=== PATIENT | male | born 1965 | race Caucasian/White ===

== ENCOUNTER 2019-03-03 19:09 | Emergency (ER) | payer MEDICAID, MEDICARE, OTHER ==
[2019-03-03 19:52] LABS: ANION GAP 17.1; CHLORIDE,CL 101 mmol/L (101-111); SODIUM,NA 141 mmol/L (135-145)
[2019-03-03] MEDS ORDERED: MVI, Adult with Vitamin K 10 ML, Folic Acid 1 MG, Thiamine 100 MG in Lactated Ringers 1... IV ONE ×4 (19:59)
--- NOTE | 2019-03-03 20:07 | EDM.PDOC ---
ED HPI GENERAL MEDICAL PROBLEM - General Chief Complaint: Trauma Stated Complaint: TRAUMA CODE, AMBULANCE Time Seen by Provider: 03/03/19 19:10 Source of Information: Reports: Patient, EMS History Limitations: Reports: Intoxication - History of Present Illness INITIAL COMMENTS - FREE TEXT/NARRATIVE: ED via [facility] with report of fall with laceration to back of head. Witnessed fall while walking to vehicle . Witness niece does not thin loss of consciousness, Saw him fall and immediately called 911. Awake on arrival of EMS., moving all extremities, pool of blood under back of head. Patient intoxicated admits drinking a lot, Niece reports, drunk since yesterday. Patient reports drinks daily. GCS 14 moving all extremities on arrival Review of Systems - Review of Systems Review Of Systems: Comprehensive ROS is negative, except as noted in HPI. ED EXAM, GENERAL - Physical Exam Exam: See Below Exam Limited By: No Limitations General Appearance: Alert, Mild Distress, Thin Eye Exam: Bilateral Eye: EOMI, PERRL Ears: Normal External Exam, Normal TMs Nose: Normal Inspection Throat/Mouth: Normal Inspection, Normal Lips, Other (dry, white residue on lips) Head: Normocephalic, Other (left parietal scalp laceration) Neck: Full Range of Motion, Other (c collar) Respiratory/Chest: No Respiratory Distress, Normal Breath Sounds, Other ( ocacasional loose bronchial cough. ). No: Respiratory Distress Cardiovascular: Normal Peripheral Pulses, Regular Rate, Rhythm, No Edema GI/Abdominal: Normal Bowel Sounds, Soft, No Distention, Pelvis Stable Back Exam: No: Paraspinal Tenderness, Vertebral Tenderness Extremities: Normal Range of Motion, Other (extremities cool, states normal) Neurological: Alert, Inattentive, Memory Loss Recent Events (intoxicated, cooprative easily redirects), Other Psychiatric: Other (intox. requires frequent redirection, non combative) Skin Exam: Ecchymosis, Tattoo(s) ED TRAUMA PROCEDURES - Laceration/Wound Repair Left Posterior Head Lac/Wound Length In cm: 2 Appearance: Superficial, Stellate Skin Prep: Chlorhexidine (Hibiciens), Saline Closed With: Narinder (6) Sterile Dressing Applied: Provider Tetanus Status Addressed: Yes Course - Orders/Labs/Meds Labs: Laboratory Tests 03/03/19 03/03/19 03/03/19 Range/Units 19:14 19:14 19:14 WBC 8.6 (5.0-10.0) 10^3/uL RBC 5.74 (4.6-6.2) 10^6/uL Hgb 18.2 H (14.0-18.0) g/dL Hct 52.5 (40.0-54.0) % MCV 91.5 (80-100) fL MCH 31.7 (27.0-34.0) pg MCHC 34.7 (33.0-35.0) g/dL Plt Count 151 (150-450) 10^3/uL Neut % (Auto) 67.4 (42.2-75.2) % Lymph % (Auto) 23.8 (20.5-50.1) % [place] % (Auto) 5.9 (2-8) % Eos % (Auto) 2.3 (1.0-3.0) % Baso % (Auto) 0.6 (0.0-1.0) % PT 10.4 (9.0-12.0) SEC INR 1.0 (0.9-1.2) Sodium 141 (135-145) mmol/L Potassium 4.1 (3.6-5.0) mmol/L Chloride 101 (101-111) mmol/L Carbon Dioxide 27.0 (21.0-31.0) mmol/L Anion Gap 17.1 BUN 9 (7-18) mg/dL Creatinine 0.7 (0.6-1.3) mg/dL Est Cr Clr Drug Dosing TNP Estimated GFR (MDRD) > 60 BUN/Creatinine Ratio 12.85 Glucose 119 H (74-105) mg/dL Calcium 8.4 (8.4-10.2) mg/dl Total Bilirubin 0.6 (0.2-1.0) mg/dL AST 85 H (10-42) IU/L ALT 74 H (10-60) IU/L Alkaline Phosphatase 68 (42-121) IU/L Total Protein 7.6 (6.7-8.2) g/dl Albumin 4.2 (3.2-5.5) g/dl Globulin 3.4 Albumin/Globulin Ratio 1.24 Amylase 52 (28-100) U/L Lipase 25 (22-51) U/L Ethyl Alcohol 415 mg/dL Meds: Medications Discontinued Medications Generic Name Dose Route Start Last Admin Trade Name Polly PRN Reason Stop Dose Admin Multivitamins/Minerals 10 ml/ 1,011.2 mls @ 999 mls/hr 03/03/19 19:59 20:43 Folic Acid 1 mg/ Thiamine HCl IV 03/03/19 20:59 999 mls/hr 100 mg/ Lactated Ringer's ONETIME ONE Administration Departure - Departure Time of Disposition: 21:41 Disposition: DC/Tfer to Acute Hospital 02 Condition: Good Clinical Impression: Intoxication Scalp laceration Qualifiers: Encounter type: initial encounter Qualified Code(s): S01.01XA - Laceration without foreign body of scalp, initial encounter Fall Qualifiers: Encounter type: initial encounter Qualified Code(s): W19.XXXA - Unspecified fall, initial encounter - Discharge Information *PRESCRIPTION DRUG MONITORING PROGRAM REVIEWED*: No *COPY OF PRESCRIPTION DRUG MONITORING REPORT IN PATIENT ROSIE: No Referrals: PCP,None [Primary Care Provider] - Forms: ED Department Discharge Sepsis Event Note - Focused Exam Date Exam was Performed: 03/05/19 Time Exam was Performed: 05:32
== END 2019-03-03 21:50 ==
LOC: DL.ED 19:09
DX: S01.01XA Laceration without foreign body of scalp, initial encounter (principal); F10.129 Alcohol abuse with intoxication, unspecified; Y90.8 Blood alcohol level of 240 mg/100 ml or more; W19.XXXA Unspecified fall, initial encounter; W22.8XXA Striking against or struck by other objects, initial encounter
CPT/HCPCS: 12001; 36415; 70450; 70486; 72125; 72192; 80053; 80320; 82150; 83690; 85025; 85610; 96365; 99285; J3411; J7120; G0480; J3490

== ENCOUNTER 2019-10-27 11:41 | Emergency (ER) | payer MEDICAID, OTHER ==
[2019-10-27] MEDS ORDERED: Ketorolac 30 MG/ML SDV IM ONE (11:53)
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
== END 2019-10-27 12:53 | disposition home or self-care (01) ==
LOC: DL.ED 11:41
DX: S20.212A Contusion of left front wall of thorax, initial encounter (principal); J44.9 Chronic obstructive pulmonary disease, unspecified; F17.210 Nicotine dependence, cigarettes, uncomplicated; V19.9XXA Pedal cyclist (driver) (passenger) injured in unspecified traffic accident, initial encounter
CPT/HCPCS: 71101; 96372; 99283; J1885; 99282

== ENCOUNTER 2020-04-23 11:25 | Inpatient (IN) | payer MEDICAID ==
--- NOTE | 2020-04-23 09:38 | EDM.PDOC ---
ED HPI GENERAL MEDICAL PROBLEM - General Stated Complaint: SHORTNESS OF BREATH Time Seen by Provider: 04/23/20 11:25 Source of Information: Reports: Patient, Provider History Limitations: Reports: No Limitations - History of Present Illness INITIAL COMMENTS - FREE TEXT/NARRATIVE: This 55 yo male patient was brought to the ED from the [facility] due to increased shortness of breath. The patient has a history of COPD with previous episodes of bronchitis and pneumonia. During the visit in the Clinic, the patient had an oxygen saturation of 87% on room air. No labs or x-rays were done prior to bringing the patient to the ED. The patient reports he has been having increased shortness of breath over the past 3 weeks. 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 The patient reports he has been using his inhaler with some temporary symptom relief. The patient reports he is out of his inhaler at this time. The patient reports he used to have a nebulizer at home, but does not know where his nebulizer machine is at this time. Onset: Gradual Duration: Week(s): (3), Constant, Getting Worse Location: Reports: Chest Quality: Reports: Other Severity: Moderate Improves with: Reports: None Worsens with: Reports: None Context: Reports: Other Associated Symptoms: Reports: cough w sputum, Shortness of Breath, Weakness - Related Data Allergies Allergy/AdvReac Type Severity Reaction Status Date / Time No Known Allergies Allergy Verified 04/23/20 09:40 Home Meds: Home Meds Albuterol Sulfate [Albuterol Sulfate HFA] 2 puff INH Q4H PRN 04/23/20 [History] Past Medical History Respiratory History: Reports: COPD Social & Family History - Family History Family Medical History: No Pertinent Family History - Caffeine Use Caffeine Use: Reports: None ED ROS GENERAL - Review of Systems Review Of Systems: Comprehensive ROS is negative, except as noted in HPI. ED EXAM, GENERAL - Physical Exam Exam: See Below Exam Limited By: No Limitations General Appearance: Alert, WD/WN, No Apparent Distress Eye Exam: Bilateral Eye: EOMI, Normal Inspection, PERRL Ears: Normal External Exam, Normal Canal, Hearing Grossly Normal, Normal TMs Nose: Normal Inspection, Normal Mucosa, No Blood Throat/Mouth: Normal Inspection, Normal Lips, Normal Teeth, Normal Gums, Normal Oropharynx, Normal Voice, No Airway Compromise Head: Atraumatic, Normocephalic Neck: Normal Inspection, Supple, Non-Tender, Full Range of Motion Respiratory/Chest: Decreased Breath Sounds, Rhonchi (diffuse) Cardiovascular: Normal Peripheral Pulses, Regular Rate, Rhythm, No Edema, No Gallop, No JVD, No Murmur, No Rub GI/Abdominal: Normal Bowel Sounds, Soft, Non-Tender, No Organomegaly, No Distention, No Abnormal Bruit, No Mass (Male) Exam: Deferred Rectal (Males) Exam: Deferred Back Exam: Normal Inspection, Full Range of Motion, NT Extremities: Normal Inspection, Normal Range of Motion, Non-Tender, Normal Capillary Refill, No Pedal Edema Neurological: Alert, Oriented, CN II-XII Intact, Normal Cognition, Normal Gait, Normal Reflexes, No Motor/Sensory Deficits Psychiatric: Normal Affect, Normal Mood Skin Exam: Warm, Dry, Intact, Normal Color, No Rash Lymphatic: No Adenopathy Course - Vital Signs Last Recorded V/S: Last Vital Signs Temp 36.8 C 04/23/20 11:49 Pulse 87 04/23/20 11:49 Resp 20 04/23/20 11:49 BP 152/90 H 04/23/20 11:49 Pulse Ox 92 L 04/23/20 11:49 - Orders/Labs/Meds Orders: Active Orders 24 hr Category Date Time Status Ambulate [RC] ASDIRECTED Care 04/23/20 11:49 Active Intake and Output [RC] QSHIFT Care 04/23/20 11:50 Active Notify Provider Vital Signs [RC] ASDIRECTED Care 04/23/20 11:50 Active Oxygen Therapy [RC] .PRN Care 04/23/20 11:49 Active Pulse Oximetry [RC] .PRN Care 04/23/20 11:50 Active RT Aerosol Therapy [RC] ASDIRECTED Care 04/23/20 10:13 Active RT Aerosol Therapy [RC] ASDIRECTED Care 04/23/20 11:56 Active VTE/DVT Education [RC] PER UNIT ROUTINE Care 04/23/20 11:49 Active Vital Signs [RC] 00,04,08,12,16,20 Care 04/23/20 11:49 Active PT Evaluation and Treatment [CONS] Routine Cons 04/23/20 11:49 Active Respiratory Care Assess and Treatment [CONS] Routine Cons 04/23/20 11:49 Active Regular Diet [DIET] Diet 04/23/20 Lunch Active CULTURE BLOOD [BC] Stat Lab 04/23/20 09:42 Received CULTURE BLOOD [BC] Stat Lab 04/23/20 11:31 Received CULTURE SPUTUM + SMEAR [RM] Stat Lab 04/23/20 09:48 Results Blood Culture x2 Reflex Set [OM.PC] Stat Oth 04/23/20 11:49 Ordered Resuscitation Status Routine Resus Stat 04/23/20 11:49 Ordered Labs: Laboratory Tests 04/23/20 04/23/20 04/23/20 Range/Units 09:26 09:42 09:42 WBC 6.1 (5.0-10.0) 10^3/uL RBC 5.45 (4.6-6.2) 10^6/uL Hgb 17.5 (14.0-18.0) g/dL Hct 51.9 (40.0-54.0) % MCV 95.2 D (80-100) fL MCH 32.1 (27.0-34.0) pg MCHC 33.7 (33.0-35.0) g/dL Plt Count 97 L (150-450) 10^3/uL Neut % (Auto) 76.4 H (42.2-75.2) % Lymph % (Auto) 11.8 L (20.5-50.1) % [place] % (Auto) 9.0 H (2-8) % Eos % (Auto) 2.1 (1.0-3.0) % Baso % (Auto) 0.7 (0.0-1.0) % Sodium 140 (136-145) mmol/L Potassium 3.3 L (3.5-5.1) mmol/L Chloride 100 (98-107) mmol/L Carbon Dioxide 32 (21-32) mmol/L Anion Gap 11.3 (7-13) mEq/L BUN 5 L (7-18) mg/dL Creatinine 0.71 (0.70-1.30) mg/dL Est Cr Clr Drug Dosing TNP Estimated GFR (MDRD) > 60 BUN/Creatinine Ratio 7.0 (No establ ref range) Glucose 112 H (74-99) mg/dL Lactic Acid (0.4-2.0) mmol/L Calcium 8.1 L (8.5-10.1) mg/dL Phosphorus (2.6-4.7) mg/dL Magnesium (1.8-2.4) mg/dL Total Bilirubin 0.5 (0.2-1.0) mg/dL AST 137 H (15-37) U/L ALT 115 H (16-63) U/L Alkaline Phosphatase 90 (46-116) U/L Troponin I < 0.017 (0.000-0.056) ng/mL Total Protein 7.4 (6.4-8.2) g/dL Albumin 3.2 L (3.4-5.0) g/dL Globulin 4.2 Albumin/Globulin Ratio 0.76 Ethyl Alcohol 47 (0) mg/dL Influenza Type A RNA Negative (NEGATIVE) Influenza Type B RNA Negative (NEGATIVE) SARS-CoV-2 RNA ([place]INSON) Negative (NEGATIVE) 04/23/20 04/23/20 Range/Units 09:42 09:42 WBC (5.0-10.0) 10^3/uL RBC (4.6-6.2) 10^6/uL Hgb (14.0-18.0) g/dL Hct (40.0-54.0) % MCV (80-100) fL MCH (27.0-34.0) pg MCHC (33.0-35.0) g/dL Plt Count (150-450) 10^3/uL Neut % (Auto) (42.2-75.2) % Lymph % (Auto) (20.5-50.1) % [place] % (Auto) (2-8) % Eos % (Auto) (1.0-3.0) % Baso % (Auto) (0.0-1.0) % Sodium (136-145) mmol/L Potassium (3.5-5.1) mmol/L Chloride (98-107) mmol/L Carbon Dioxide (21-32) mmol/L Anion Gap (7-13) mEq/L BUN (7-18) mg/dL Creatinine (0.70-1.30) mg/dL Est Cr Clr Drug Dosing Estimated GFR (MDRD) BUN/Creatinine Ratio (No establ ref range) Glucose (74-99) mg/dL Lactic Acid 1.4 (0.4-2.0) mmol/L Calcium (8.5-10.1) mg/dL Phosphorus 3.3 (2.6-4.7) mg/dL Magnesium 1.7 L (1.8-2.4) mg/dL Total Bilirubin (0.2-1.0) mg/dL AST (15-37) U/L ALT (16-63) U/L Alkaline Phosphatase (46-116) U/L Troponin I (0.000-0.056) ng/mL Total Protein (6.4-8.2) g/dL Albumin (3.4-5.0) g/dL Globulin Albumin/Globulin Ratio Ethyl Alcohol (0) mg/dL Influenza Type A RNA (NEGATIVE) Influenza Type B RNA (NEGATIVE) SARS-CoV-2 RNA (R[place]INSON) (NEGATIVE) Meds: Medications Discontinued Medications Generic Name Dose Route Start Last Admin Trade Name Freq PRN Reason Stop Dose Admin Acetaminophen 650 mg 04/23/20 11:49 Tylenol PO Q4H PRN Pain (Mild 1-3)/fever Albuterol/Ipratropium 3 ml 04/23/20 10:13 04/23/20 10:19 Duoneb 3.0-0.5 Mg/3 Ml NEB 04/23/20 10:14 3 ml ONETIME ONE Administration Albuterol/Ipratropium 3 ml 04/23/20 15:00 Duoneb 3.0-0.5 Mg/3 Ml NEB Q4HRRT [facility] Heparin Sodium (Porcine) 5,000 units 04/23/20 21:00 Heparin Sodium SUBCUT Q12HR [facility] Ceftriaxone Sodium 1 gm/ 50 mls @ 100 mls/hr 04/23/20 11:12 04/23/20 11:28 Sodium Chloride IV 04/23/20 11:41 100 mls/hr ONETIME ONE Administration Azithromycin 500 mg/ Sodium 250 mls @ 250 mls/hr 04/23/20 11:12 04/23/20 11:28 Chloride IV 04/23/20 12:11 250 mls/hr ONETIME ONE Administration Ceftriaxone Sodium 1 gm/ 50 mls @ 100 mls/hr 04/23/20 13:00 Sodium Chloride IV Q24H [facility] Azithromycin 500 mg/ Sodium 250 mls @ 250 mls/hr 04/24/20 12:00 Chloride IV Q24H [facility] Magnesium Hydroxide 30 ml 04/23/20 11:49 Milk Of Magnesia PO Q12H PRN Constipation Methylprednisolone Sodium Succinate 125 mg 04/23/20 11:12 04/23/20 11:27 Solu-Medrol IVPUSH 04/23/20 11:13 125 mg ONETIME ONE Administration Methylprednisolone Sodium Succinate 40 mg 04/23/20 17:00 Solu-Medrol IVPUSH Q8HR [facility] Ondansetron HCl 4 mg 04/23/20 11:49 Zofran IVPUSH Q6H PRN Nausea/Vomiting Departure - Departure Time of Disposition: 11:16 Disposition: Admitted As Inpatient 66 Condition: Fair Clinical Impression: Pneumonia Qualifiers: Pneumonia type: due to unspecified organism Laterality: right Lung location: lower lobe of lung Qualified Code(s): J18.9 - Pneumonia, unspecified organism - Discharge Information *PRESCRIPTION DRUG MONITORING PROGRAM REVIEWED*: Not Applicable *COPY OF PRESCRIPTION DRUG MONITORING REPORT IN PATIENT ROSIE: Not Applicable Referrals: Mabel Munoz NP [Ordering Only Provider] - Forms: ED Department Discharge Sepsis Event Note (ED) - Focused Exam Vital Signs: Vital Signs Temp Pulse Resp BP BP Pulse Ox Pulse Ox 04/23/20 11:49 36.8 C 87 20 152/90 H 156/94 H 92 L 04/23/20 10:13 86 97 04/23/20 09:36 36.0 C L 90 20 158/91 H 94 L - My Orders Last 24 Hours: My Active Orders 04/23/20 09:42 CULTURE BLOOD [BC] Stat 04/23/20 09:48 CULTURE SPUTUM + SMEAR [RM] Stat 04/23/20 10:13 RT Aerosol Therapy [RC] ASDIRECTED 04/23/20 11:31 CULTURE BLOOD [BC] Stat - Assessment/Plan Last 24 Hours: My Active Orders 04/23/20 09:42 CULTURE BLOOD [BC] Stat 04/23/20 09:48 CULTURE SPUTUM + SMEAR [RM] Stat 04/23/20 10:13 RT Aerosol Therapy [RC] ASDIRECTED 04/23/20 11:31 CULTURE BLOOD [BC] Stat
[2020-04-23 10:10] LABS: CORONAVIRUS COVID-19 NAA NEGATIVE (NEGATIVE)
[2020-04-23 10:15] LABS: ANION GAP 11.3 mEq/L (7-13); CHLORIDE,CL 100 mmol/L (98-107); SODIUM,NA 140 mmol/L (136-145)
--- NOTE | 2020-04-23 10:39 | CR ---
PROCEDURE INFORMATION: Exam: XR Chest, 2 Views Exam date and time: 04/23/2020 10:28 AM Age: 55 years old Clinical indication: Shortness of breath; Additional info: Short of breath TECHNIQUE: Imaging protocol: XR of the chest Views: 2 views. COMPARISON: CR Ribs 2V w Chest Lt 10/27/2019 11:54 AM FINDINGS: Lungs: There is mild new hazy opacity in the right perihilar region. The lungs are otherwise clear. Pleural spaces: Unremarkable. No pleural effusion. No pneumothorax. Heart/Mediastinum: The cardiomediastinal silhouette is fairly stable in appearance. Bones/joints: Some pre-existing left rib fractures now have a chronic appearance. Degenerative changes again involve the spine. IMPRESSION: Mild hazy right perihilar opacity, could reflect pneumonia.
[~2020-04-23 11:25] MED LIST: Albuterol/Ipratropium 3.0-0.5 MG/3 ML Neb Soln NEB ONE; Azithromycin 500 MG in Sodium Chloride 0.9% 250 ML IV ONE; cefTRIAXone 1 GM in Sodium Chloride 0.9% 50 ML IV ONE; methylPREDNISolone Sodium Succinate 125 MG/2 ML SDV IVPUSH ONE
[2020-04-23] MEDS ORDERED: Acetaminophen 325 MG Tab PO PRN (11:49)
[2020-04-23] MEDS ORDERED: Ondansetron 4 MG/2 ML SDV IVPUSH PRN (11:49)
--- NOTE | 2020-04-23 11:57 | PCM.HP ---
H&P History of Present Illness - General Date of Service: 04/23/20 Admit Problem/Dx: COPD exacerbation Source of Information: Patient History Limitations: Reports: No Limitations - History of Present Illness Initial Comments - Free Text/Narative: Jasvir is 55-year-old male with past medical history significant for active tobacco abuse, COPD who presented to the ED from clinic for shortness of breath and hypoxia. Patient reports he has been having increasing shortness of breath for the past 3 weeks. He is run out of his inhaler and currently using one that belongs to his friend. He presented to the clinic to get a refill on his albuterol. He was noted to be short of breath with hypoxia. He was placed on 2 L oxygen and sent to the ED. He reports dyspnea on exertion. He noted wheezing, productive cough with greenish sputum. He has no fever or chills. Denies chest pain. No leg swelling. No recent travel or sick contact. States has been trying to cut down on smoking. Currently half pack a day. He denies alcohol abuse. In the ED vitals unremarkable. Labs significant for potassium 3.3, CBC within normal limits. AST/ALT 137/115. Chest x-ray concerning for mild hazy perihilar opacity concerning for pneumonia. He received neb treatment with some improvement in shortness of breath. He also received Solu-Medrol and antibiotics. Admission requested for further management. Onset of Symptoms: Reports: Gradual Duration of Symptoms: Reports: Week(s): Location: Reports: Chest Quality: Reports: Ache Improves with: Reports: None Worsens with: Reports: None Associated Symptoms: Reports: No Other Symptoms - Related Data Allergies/Adverse Reactions: Allergies Allergy/AdvReac Type Severity Reaction Status Date / Time No Known Allergies Allergy Verified 04/23/20 09:40 Home Medications: Home Meds Albuterol Sulfate [Albuterol Sulfate HFA] 2 puff INH Q4H PRN 04/23/20 [History] Past Medical History Respiratory History: Reports: COPD Social & Family History - Family History Family Medical History: No Pertinent Family History - Tobacco Use Tobacco Use Status *Q: Current Every Day Tobacco User Years of Tobacco use: 40 Packs/Tins Daily: 0.5 - Caffeine Use Caffeine Use: Reports: None - Alcohol Use Days Per Week of Alcohol Use: 2 Number of Drinks Per Day: 4 Total Drinks Per Week: 8 - Recreational Drug Use Recreational Drug Use: No H&P Review of Systems - Review of Systems: Review Of Systems: See Below (As per HPI) Free Text/Narrative: As per HPI General: Reports: No Symptoms HEENT: Reports: No Symptoms Pulmonary: Reports: No Symptoms Cardiovascular: Reports: No Symptoms Gastrointestinal: Reports: No Symptoms Genitourinary: Reports: No Symptoms Musculoskeletal: Reports: No Symptoms Skin: Reports: No Symptoms Psychiatric: Reports: No Symptoms Neurological: Reports: No Symptoms Hematologic/Lymphatic: Reports: No Symptoms Immunologic: Reports: No Symptoms Exam - Exam Exam: See Below - Vital Signs Vital Signs: Last Vital Signs Temp 96.8 F L 04/23/20 09:36 Pulse 86 04/23/20 10:13 Resp 20 04/23/20 09:36 BP 158/91 H 04/23/20 09:36 Pulse Ox 97 04/23/20 10:13 - Exam General: Alert, Oriented, 4 HEENT: PERRLA, Hearing Intact, Mucosa Moist & [place], Nares Patent, Normal Nasal Septum, Posterior Pharynx Clear, Conjunctiva Clear, EOMI, EACs Clear, TMs Clear Neck: Supple, Trachea Midline, 2 Lungs: Normal Respiratory Effort, Other (Mild scattered wheezing) Cardiovascular: Regular Rate, Regular Rhythm GI/Abdominal Exam: Normal Bowel Sounds, Soft, Non-Tender, No Organomegaly, No Distention, No Abnormal Bruit, No Mass, Pelvis Stable (Male) Exam: No Hernia, Normal Inspection, Normal Prostate, Circumcised Rectal (Males) Exam: Normal Exam, Normal Rectal Tone, Prostate Normal Back Exam: Normal Inspection, Full Range of Motion, NT Extremities: Normal Inspection, Normal Range of Motion, Non-Tender, No Pedal Edema, Normal Capillary Refill Skin: Warm, Dry, Intact Neurological: Cranial Nerves Intact, Reflexes Equal Bilateral Neuro Extensive - Mental Status: Alert, Oriented x3, Normal Mood/Affect, Normal Cognition Neuro Extensive - Motor, Sensory, Reflexes: CN II-XII Intact, Normal Gait, Normal Reflexes Psychiatric: Alert, Normal Affect, Normal Mood - Patient Data Lab Results Last 24 hrs: Laboratory Results - last 24 hr 04/23/20 04/23/20 04/23/20 Range/Units 09:26 09:42 09:42 WBC 6.1 (5.0-10.0) 10^3/uL RBC 5.45 (4.6-6.2) 10^6/uL Hgb 17.5 (14.0-18.0) g/dL Hct 51.9 (40.0-54.0) % MCV 95.2 D (80-100) fL MCH 32.1 (27.0-34.0) pg MCHC 33.7 (33.0-35.0) g/dL Plt Count 97 L (150-450) 10^3/uL Neut % (Auto) 76.4 H (42.2-75.2) % Lymph % (Auto) 11.8 L (20.5-50.1) % [place] % (Auto) 9.0 H (2-8) % Eos % (Auto) 2.1 (1.0-3.0) % Baso % (Auto) 0.7 (0.0-1.0) % Sodium 140 (136-145) mmol/L Potassium 3.3 L (3.5-5.1) mmol/L Chloride 100 (98-107) mmol/L Carbon Dioxide 32 (21-32) mmol/L Anion Gap 11.3 (7-13) mEq/L BUN 5 L (7-18) mg/dL Creatinine 0.71 (0.70-1.30) mg/dL Est Cr Clr Drug Dosing TNP Estimated GFR (MDRD) > 60 BUN/Creatinine Ratio 7.0 (No establ ref range) Glucose 112 H (74-99) mg/dL Lactic Acid (0.4-2.0) mmol/L Calcium 8.1 L (8.5-10.1) mg/dL Total Bilirubin 0.5 (0.2-1.0) mg/dL AST 137 H (15-37) U/L ALT 115 H (16-63) U/L Alkaline Phosphatase 90 (46-116) U/L Troponin I < 0.017 (0.000-0.056) ng/mL Total Protein 7.4 (6.4-8.2) g/dL Albumin 3.2 L (3.4-5.0) g/dL Globulin 4.2 Albumin/Globulin Ratio 0.76 Ethyl Alcohol 47 (0) mg/dL Influenza Type A RNA Negative (NEGATIVE) Influenza Type B RNA Negative (NEGATIVE) SARS-CoV-2 RNA ([place]) Negative (NEGATIVE) 04/23/20 Range/Units 09:42 WBC (5.0-10.0) 10^3/uL RBC (4.6-6.2) 10^6/uL Hgb (14.0-18.0) g/dL Hct (40.0-54.0) % MCV (80-100) fL MCH (27.0-34.0) pg MCHC (33.0-35.0) g/dL Plt Count (150-450) 10^3/uL Neut % (Auto) (42.2-75.2) % Lymph % (Auto) (20.5-50.1) % [place] % (Auto) (2-8) % Eos % (Auto) (1.0-3.0) % Baso % (Auto) (0.0-1.0) % Sodium (136-145) mmol/L Potassium (3.5-5.1) mmol/L Chloride (98-107) mmol/L Carbon Dioxide (21-32) mmol/L Anion Gap (7-13) mEq/L BUN (7-18) mg/dL Creatinine (0.70-1.30) mg/dL Est Cr Clr Drug Dosing Estimated GFR (MDRD) BUN/Creatinine Ratio (No establ ref range) Glucose (74-99) mg/dL Lactic Acid 1.4 (0.4-2.0) mmol/L Calcium (8.5-10.1) mg/dL Total Bilirubin (0.2-1.0) mg/dL AST (15-37) U/L ALT (16-63) U/L Alkaline Phosphatase (46-116) U/L Troponin I (0.000-0.056) ng/mL Total Protein (6.4-8.2) g/dL Albumin (3.4-5.0) g/dL Globulin Albumin/Globulin Ratio Ethyl Alcohol (0) mg/dL Influenza Type A RNA (NEGATIVE) Influenza Type B RNA (NEGATIVE) SARS-CoV-2 RNA ([place]) (NEGATIVE) Result Diagrams: 04/23/20 09:42 04/23/20 09:42 Gilbert Results Last 24 hrs: Microbiology 04/23/20 09:48 Gram Stain - Final Sputum - Expectorated - Problem List (1) COPD with exacerbation SNOMED Code(s): 614071560 ICD Code: J44.1 - CHRONIC OBSTRUCTIVE PULMONARY DISEASE W (ACUTE) EXACERBATION Status: Acute Current Visit: Yes (2) Hypoxia SNOMED Code(s): 010134478 ICD Code: R09.02 - HYPOXEMIA Status: Acute Current Visit: Yes (3) Hypokalemia SNOMED Code(s): 28536648 ICD Code: E87.6 - HYPOKALEMIA Status: Acute Current Visit: Yes (4) Community acquired pneumonia SNOMED Code(s): 932186701 ICD Code: J18.9 - PNEUMONIA, UNSPECIFIED ORGANISM Status: Acute Current Visit: Yes (5) Transaminitis SNOMED Code(s): 810190435, 592918799 ICD Code: R74.01 - ELEVATION OF LEVELS OF LIVER TRANSAMINASE LEVELS Status: Acute Current Visit: Yes Problem List Initiated/Reviewed/Updated: Yes Orders Last 24hrs: Active Orders 24 hr Category Date Time Status Ambulate [RC] ASDIRECTED Care 04/23/20 11:49 Ordered EKG Documentation Completion [RC] STAT Care 04/23/20 09:16 Active Intake and Output [RC] QSHIFT Care 04/23/20 11:50 Ordered Notify Provider Vital Signs [RC] ASDIRECTED Care 04/23/20 11:50 Ordered Oxygen Therapy [RC] PRN Care 04/23/20 11:49 Ordered Pulse Oximetry [RC] PRN Care 04/23/20 11:50 Ordered RT Aerosol Therapy [RC] ASDIRECTED Care 04/23/20 10:13 Active RT Aerosol Therapy [RC] ASDIRECTED Care 04/23/20 11:56 Ordered VTE/DVT Education [RC] PER UNIT ROUTINE Care 04/23/20 11:49 Ordered Vital Signs [RC] Q4H Care 04/23/20 11:49 Ordered PT Evaluation and Treatment [CONS] Routine Cons 04/23/20 11:49 Ordered Respiratory Care Assess and Treatment [CONS] Routine Cons 04/23/20 11:49 Ordered Regular Diet [DIET] Diet 04/23/20 Lunch Ordered CULTURE BLOOD [BC] Stat Lab 04/23/20 09:42 Received CULTURE BLOOD [BC] Stat Lab 04/23/20 11:31 Received CULTURE BLOOD [BC] Stat Lab 04/23/20 11:52 Ordered CULTURE BLOOD [BC] Stat Lab 04/23/20 11:52 Ordered CULTURE SPUTUM + SMEAR [RM] Stat Lab 04/23/20 09:48 Results CULTURE SPUTUM + SMEAR [RM] Stat Lab 04/23/20 11:49 Ordered DRUG SCREEN URINE BIORAD [URCHEM] Stat Lab 04/23/20 09:17 Ordered GRAM STAIN [RM] Routine Lab 04/23/20 11:49 Ordered MAGNESIUM [CHEM] Routine Lab 04/23/20 11:49 Ordered PHOSPHORUS [CHEM] Routine Lab 04/23/20 11:49 Ordered UA RFX GILBERT AND CULT IF INDIC [URIN] Urgent Lab 04/23/20 09:17 Ordered Acetaminophen [TylenoL] Med 04/23/20 11:49 Ordered 650 mg PO Q4H PRN Albuterol/Ipratropium [DuoNeb 3.0-0.5 MG/3 ML] Med 04/23/20 15:00 Ordered 3 ml NEB Q4HRRT Azithromycin [Zithromax] 500 mg Med 04/23/20 11:12 Active Sodium Chloride 0.9% [Normal Saline (AdvBag)] 250 ml IV ONETIME Azithromycin [Zithromax] 500 mg Med 04/24/20 12:00 Ordered Sodium Chloride 0.9% [Normal Saline (AdvBag)] 250 ml IV Q24H Heparin Sodium Med 04/23/20 21:00 Ordered 5,000 units SUBCUT Q12HR Magnesium Hydroxide [Milk of Magnesia] Med 04/23/20 11:49 Ordered 30 ml PO Q12H PRN Ondansetron [Zofran] Med 04/23/20 11:49 Ordered 4 mg IVPUSH Q6H PRN cefTRIAXone [Rocephin] 1,000 mg Med 04/24/20 12:00 Ordered Sodium Chloride 0.9% [Normal Saline] 50 ml IV Q24H methylPREDNISolone Sod Succ [Solu-MEDROL] Med 04/23/20 12:00 Ordered 40 mg IVPUSH Q8H Blood Culture x2 Reflex Set [OM.PC] Stat Oth 04/23/20 11:49 Ordered Resuscitation Status Routine Resus Stat 04/23/20 11:49 Ordered Medication Orders Acetaminophen (Tylenol) 650 mg PO Q4H PRN PRN Reason: Pain (Mild 1-3)/fever Albuterol/Ipratropium (Duoneb 3.0-0.5 Mg/3 Ml) 3 ml NEB Q4HRRT JUDE Heparin Sodium (Porcine) (Heparin Sodium) 5,000 units SUBCUT Q12HR JUDE Azithromycin 500 mg/ Sodium (Chloride) 250 mls @ 250 mls/hr IV ONETIME ONE Stop: 04/23/20 12:11 Last Admin: 04/23/20 11:28 Dose: 250 mls/hr Documented by: TOMAS Ceftriaxone Sodium 1,000 mg/ (Sodium Chloride) 50 mls @ 100 mls/hr IV Q24H JUDE Azithromycin 500 mg/ Sodium (Chloride) 250 mls @ 250 mls/hr IV Q24H JUDE Magnesium Hydroxide (Milk Of Magnesia) 30 ml PO Q12H PRN PRN Reason: Constipation Methylprednisolone Sodium Succinate (Solu-Medrol) 40 mg IVPUSH Q8H JUDE Ondansetron HCl (Zofran) 4 mg IVPUSH Q6H PRN PRN Reason: Nausea/Vomiting Assessment/Plan Comment:: #COPD exacerbation #Probable pneumonia #Acute respiratory failure with hypoxia due to above Patient presented to the ED for evaluation of increasing shortness of breath He was hypoxic requiring supplemental oxygen, 2 L via nasal cannula Chest x-ray concerning for pneumonia COVID-19 screen negative. Influenza AMB negative Admit to medical floor BNP DuoNebs every 4 hours Solu-Medrol 40 mg every 8 hours Sputum for Gram stain and culture Blood culture Received IV ceftriaxone azithromycin in the ED. Continue Continue supplemental oxygen and wean off as tolerated Patient continued tobacco cessation #Hypokalemia P.o. replacement #Transaminitis AST/ALT elevated at 137/115 Right upper quadrant ultrasound Acute hepatitis profile Repeat LFTs in the a.m. #Continue tobacco abuse Counseled to quit Provide nicotine patch
[2020-04-23] MEDS ORDERED: Potassium Chloride 10 MEQ Tab.ER PO SCH ×2 (12:22→21:00)
[2020-04-23] MEDS: cefTRIAXone 1 GM in Sodium Chloride 0.9% 50 ML IV SCH (15:22)
[2020-04-23] MEDS: Albuterol/Ipratropium 3.0-0.5 MG/3 ML Neb Soln NEB SCH ×3 (15:40→23:31)
[2020-04-23] MEDS: methylPREDNISolone Sodium Succinate 40 MG/1 ML SDV IVPUSH SCH ×2 (18:16→21:18)
[2020-04-23] MEDS: Sodium Chloride 0.9% 10 ML Syringe FLUSH PRN (21:18)
[2020-04-23] MEDS: Heparin Sodium 5,000 Units/ML Vial SUBCUT SCH (23:04)
[2020-04-24] MEDS: Albuterol/Ipratropium 3.0-0.5 MG/3 ML Neb Soln NEB SCH ×6 (03:03→22:48)
[2020-04-24] MEDS: methylPREDNISolone Sodium Succinate 40 MG/1 ML SDV IVPUSH SCH ×3 (05:33→22:48)
[2020-04-24] MEDS: Sodium Chloride 0.9% 10 ML Syringe FLUSH PRN ×3 (05:33→12:55)
[2020-04-24 06:36] LABS: ANION GAP 12.1 mEq/L (7-13); CHLORIDE,CL 100 mmol/L (98-107); SODIUM,NA 138 mmol/L (136-145)
[2020-04-24] MEDS: Heparin Sodium 5,000 Units/ML Vial SUBCUT SCH (10:08)
[2020-04-24] MEDS: Azithromycin 500 MG in Sodium Chloride 0.9% 250 ML IV SCH (12:55)
--- NOTE | 2020-04-24 13:22 | US ---
EXAMINATION: Abdomen Ltd SEX: Male AGE: 55 years CLINICAL HISTORY: 55-year-old male with Abnormal LFTs. INTERPRETATION: 1. Homogeneously echodense liver consistent with diffuse fatty infiltration. No discrete intrahepatic cystic or solid mass lesion. No abnormal dilatation of the intra or extrahepatic biliary ducts. Normal gallbladder size and anatomic configuration. Uniformly thin wall. No pericystic fluid, fixed intraluminal mucosal wall polypoid mass or mobile dependent intraluminal echogenic "shadowing" gallstones. 2. Pancreas sonographically unremarkable. No mass, peripancreatic inflammation, phlegmon or pseudocyst. No calcifications. 3. Normal right kidney. No sign of mass, nephrolithiasis or obstructive uropathy on the right. 4. No ascites. No pleural effusions. 5. Normal caliber upper abdominal aorta. CONCLUSION: Fatty liver. Negative gallbladder and pancreas.
[2020-04-24] MEDS: cefTRIAXone 1 GM in Sodium Chloride 0.9% 50 ML IV SCH (14:14)
--- NOTE | 2020-04-24 20:19 | PCM.PN ---
- General Info Date of Service: 04/24/20 Admission Dx/Problem (Free Text): COPD exacerbation Subjective Update: Patient seen and examined this morning. Now off oxygen. Still has some coughing. Afebrile overnight. - Review of Systems General: Reports: No Symptoms HEENT: Reports: No Symptoms Pulmonary: Reports: Cough, Wheezing Cardiovascular: Reports: No Symptoms Gastrointestinal: Reports: No Symptoms Genitourinary: Reports: No Symptoms Musculoskeletal: Reports: No Symptoms Skin: Reports: No Symptoms Neurological: Reports: No Symptoms Psychiatric: Reports: No Symptoms - Patient Data Vitals - Most Recent: Last Vital Signs Temp 98.7 F 04/24/20 19:48 Pulse 88 04/24/20 19:48 Resp 18 04/24/20 19:48 BP 146/70 H 04/24/20 19:48 Pulse Ox 95 04/24/20 19:48 Weight - Most Recent: 164 lb I&O - Last 24 Hours: Intake & Output 04/24/20 04/24/20 04/24/20 06:59 14:59 22:59 Intake Total 350 1045 360 Balance 350 1045 360 Lab Results Last 24 Hours: Laboratory Results - last 24 hr 04/24/20 Range/Units 06:05 Sodium 138 (136-145) mmol/L Potassium 5.1 D (3.5-5.1) mmol/L Chloride 100 (98-107) mmol/L Carbon Dioxide 31 (21-32) mmol/L Anion Gap 12.1 (7-13) mEq/L BUN 12 (7-18) mg/dL Creatinine 0.76 (0.70-1.30) mg/dL Est Cr Clr Drug Dosing 108.53 mL/min Estimated GFR (MDRD) > 60 BUN/Creatinine Ratio 15.8 (No establ ref range) Glucose 151 H (74-99) mg/dL Calcium 8.6 (8.5-10.1) mg/dL Total Bilirubin 0.8 (0.2-1.0) mg/dL AST 69 H (15-37) U/L ALT 95 H (16-63) U/L Alkaline Phosphatase 85 (46-116) U/L Total Protein 7.1 (6.4-8.2) g/dL Albumin 3.1 L (3.4-5.0) g/dL Globulin 4.0 Albumin/Globulin Ratio 0.78 Gilbert Results Last 24 Hours: Microbiology 04/23/20 11:31 Aerobic Blood Culture - Preliminary Blood NO GROWTH AFTER 1 DAY Anaerobic Blood Culture - Preliminary NO GROWTH AFTER 1 DAY 04/23/20 09:42 Aerobic Blood Culture - Preliminary Blood - Arm, Left NO GROWTH AFTER 1 DAY Anaerobic Blood Culture - Preliminary NO GROWTH AFTER 1 DAY Med Orders - Current: Current Medications Acetaminophen (Tylenol) 650 mg PO Q4H PRN PRN Reason: Pain (Mild 1-3)/fever Albuterol/Ipratropium (Duoneb 3.0-0.5 Mg/3 Ml) 3 ml NEB Q4HRRT [facility] Last Admin: 04/24/20 18:43 Dose: 3 ml Documented by: Heparin Sodium (Porcine) (Heparin Sodium) 5,000 units SUBCUT Q12HR [facility] Last Admin: 04/24/20 10:08 Dose: Not Given Documented by: Ceftriaxone Sodium 1 gm/ (Sodium Chloride) 50 mls @ 100 mls/hr IV Q24H [facility] Last Admin: 04/24/20 14:14 Dose: 100 mls/hr Documented by: Azithromycin 500 mg/ Sodium (Chloride) 250 mls @ 250 mls/hr IV Q24H [facility] Last Admin: 04/24/20 12:55 Dose: 250 mls/hr Documented by: Magnesium Hydroxide (Milk Of Magnesia) 30 ml PO Q12H PRN PRN Reason: Constipation Methylprednisolone Sodium Succinate (Solu-Medrol) 40 mg IVPUSH Q8HR [facility] Last Admin: 04/24/20 14:11 Dose: 40 mg Documented by: Ondansetron HCl (Zofran) 4 mg IVPUSH Q6H PRN PRN Reason: Nausea/Vomiting Sodium Chloride (Saline Flush) 10 ml FLUSH ASDIRECTED PRN PRN Reason: Keep Vein Open Last Admin: 04/24/20 12:55 Dose: 10 ml Documented by: Discontinued Medications Albuterol/Ipratropium (Duoneb 3.0-0.5 Mg/3 Ml) 3 ml NEB ONETIME ONE Stop: 04/23/20 10:14 Last Admin: 04/23/20 10:19 Dose: 3 ml Documented by: Ceftriaxone Sodium 1 gm/ (Sodium Chloride) 50 mls @ 100 mls/hr IV ONETIME ONE Stop: 04/23/20 11:41 Last Admin: 04/23/20 11:28 Dose: 100 mls/hr Documented by: Azithromycin 500 mg/ Sodium (Chloride) 250 mls @ 250 mls/hr IV ONETIME ONE Stop: 04/23/20 12:11 Last Infusion: 04/23/20 13:51 Dose: Infused Documented by: Methylprednisolone Sodium Succinate (Solu-Medrol) 125 mg IVPUSH ONETIME ONE Stop: 04/23/20 11:13 Last Admin: 04/23/20 11:27 Dose: 125 mg Documented by: Potassium Chloride (Klor-Con 10) 40 meq PO BEDTIME JUDE Last Admin: 04/23/20 13:25 Dose: 40 meq Documented by: Potassium Chloride (Klor-Con 10) 40 meq PO BID JUDE Last Admin: 04/23/20 21:15 Dose: 40 meq Documented by: - Exam General: Alert, Oriented HEENT: Pupils Equal, Pupils Reactive, EOMI, Mucous Membr. Moist/[place] Neck: Supple Lungs: Wheezing Cardiovascular: Regular Rate, Regular Rhythm GI/Abdominal Exam: Normal Bowel Sounds, Soft, Non-Tender, No Organomegaly, No Distention, No Abnormal Bruit, No Mass, Pelvis Stable Back Exam: Normal Inspection, Full Range of Motion Extremities: Normal Inspection, Normal Range of Motion, Non-Tender, No Pedal Edema, Normal Capillary Refill Skin: Warm, Dry, Intact Neurological: No New Focal Deficit Psy/Mental Status: Alert, Normal Affect, Normal Mood - Patient Data Lab Results Last 24 hrs: Laboratory Results - last 24 hr 04/24/20 Range/Units 06:05 Sodium 138 (136-145) mmol/L Potassium 5.1 D (3.5-5.1) mmol/L Chloride 100 (98-107) mmol/L Carbon Dioxide 31 (21-32) mmol/L Anion Gap 12.1 (7-13) mEq/L BUN 12 (7-18) mg/dL Creatinine 0.76 (0.70-1.30) mg/dL Est Cr Clr Drug Dosing 108.53 mL/min Estimated GFR (MDRD) > 60 BUN/Creatinine Ratio 15.8 (No establ ref range) Glucose 151 H (74-99) mg/dL Calcium 8.6 (8.5-10.1) mg/dL Total Bilirubin 0.8 (0.2-1.0) mg/dL AST 69 H (15-37) U/L ALT 95 H (16-63) U/L Alkaline Phosphatase 85 (46-116) U/L Total Protein 7.1 (6.4-8.2) g/dL Albumin 3.1 L (3.4-5.0) g/dL Globulin 4.0 Albumin/Globulin Ratio 0.78 Result Diagrams: 04/23/20 09:42 04/24/20 06:05 Gilbert Results Last 24 hrs: Microbiology 04/23/20 11:31 Aerobic Blood Culture - Preliminary Blood NO GROWTH AFTER 1 DAY Anaerobic Blood Culture - Preliminary NO GROWTH AFTER 1 DAY 04/23/20 09:42 Aerobic Blood Culture - Preliminary Blood - Arm, Left NO GROWTH AFTER 1 DAY Anaerobic Blood Culture - Preliminary NO GROWTH AFTER 1 DAY Sepsis Event Note - Evaluation Sepsis Screening Result: No Definite Risk - Focused Exam Vital Signs: Vital Signs Temp Pulse Resp BP Pulse Ox Pulse Ox 04/24/20 19:48 98.7 F 88 18 146/70 H 95 04/24/20 18:45 94 93 L 04/24/20 16:00 98.6 F 86 20 136/70 94 L 04/24/20 15:57 83 96 04/24/20 12:00 98.5 F 85 20 147/72 H 94 L 04/24/20 11:00 92 L - Problem List Review Problem List Initiated/Reviewed/Updated: Yes - Plan Plan:: #COPD exacerbation #Probable pneumonia #Acute respiratory failure with hypoxia due to above Patient presented to the ED for evaluation of increasing shortness of breath He was hypoxic requiring supplemental oxygen, 2 L via nasal cannula Chest x-ray concerning for pneumonia COVID-19 screen negative. Influenza AMB negative DuoNebs every 4 hours Solu-Medrol 40 mg every 8 hours Sputum for Gram stain and culture and Blood culture Continue IV ceftriaxone and azithromycin Now off oxygen Patient counseled tobacco cessation #Hypokalemia Replaced #Transaminitis AST/ALT elevated at 137/115 Right upper quadrant ultrasound showed fatty liver Acute hepatitis profile Repeat LFTs trending down #Continue tobacco abuse Counseled to quit Provide nicotine patch
[2020-04-25] MEDS: Albuterol/Ipratropium 3.0-0.5 MG/3 ML Neb Soln NEB SCH ×6 (02:34→22:26)
[2020-04-25] MEDS: Sodium Chloride 0.9% 10 ML Syringe FLUSH PRN ×2 (06:15→11:37)
[2020-04-25] MEDS: methylPREDNISolone Sodium Succinate 40 MG/1 ML SDV IVPUSH SCH ×3 (06:15→22:25)
[2020-04-25 06:54] LABS: ANION GAP 11.9 mEq/L (7-13); CHLORIDE,CL 100 mmol/L (98-107); SODIUM,NA 135 mmol/L (136-145)
[2020-04-25] MEDS: Magnesium Hydroxide 400 MG/5 ML Susp 30 ML Cup PO PRN ×2 (08:39→22:32)
[2020-04-25] MEDS: Heparin Sodium 5,000 Units/ML Vial SUBCUT SCH ×2 (09:14→21:09)
[2020-04-25] MEDS: Azithromycin 500 MG in Sodium Chloride 0.9% 250 ML IV SCH (11:38)
[2020-04-25] MEDS: cefTRIAXone 1 GM in Sodium Chloride 0.9% 50 ML IV SCH (13:28)
--- NOTE | 2020-04-25 20:45 | PCM.PN ---
- General Info Date of Service: 04/25/20 Admission Dx/Problem (Free Text): COPD exacerbation Subjective Update: Patient seen and examined this morning. Still has some coughing and mild wheezing. Afebrile overnight. Functional Status: Reports: Pain Controlled - Review of Systems General: Reports: No Symptoms HEENT: Reports: No Symptoms Pulmonary: Reports: Cough, Wheezing Cardiovascular: Reports: No Symptoms Gastrointestinal: Reports: No Symptoms Genitourinary: Reports: No Symptoms Musculoskeletal: Reports: No Symptoms Skin: Reports: No Symptoms Neurological: Reports: No Symptoms Psychiatric: Reports: No Symptoms - Patient Data Vitals - Most Recent: Last Vital Signs Temp 98.1 F 04/25/20 16:00 Pulse 85 04/25/20 18:40 Resp 18 04/25/20 16:00 BP 137/83 04/25/20 16:00 Pulse Ox 95 04/25/20 18:40 Weight - Most Recent: 164 lb I&O - Last 24 Hours: Intake & Output 04/25/20 04/25/20 04/25/20 06:59 14:59 22:59 Intake Total 400 2515 436 Balance 400 2515 436 Lab Results Last 24 Hours: Laboratory Results - last 24 hr 04/25/20 04/25/20 04/25/20 Range/Units 06:00 06:00 06:00 WBC 11.1 H (5.0-10.0) 10^3/uL RBC 5.19 (4.6-6.2) 10^6/uL Hgb 16.9 (14.0-18.0) g/dL Hct 49.8 (40.0-54.0) % MCV 96.0 (80-100) fL MCH 32.6 (27.0-34.0) pg MCHC 33.9 (33.0-35.0) g/dL Plt Count 109 L (150-450) 10^3/uL Sodium 135 L (136-145) mmol/L Potassium 4.9 (3.5-5.1) mmol/L Chloride 100 (98-107) mmol/L Carbon Dioxide 28 (21-32) mmol/L Anion Gap 11.9 (7-13) mEq/L BUN 18 (7-18) mg/dL Creatinine 0.75 (0.70-1.30) mg/dL Est Cr Clr Drug Dosing 109.98 mL/min Estimated GFR (MDRD) > 60 BUN/Creatinine Ratio 24.0 (No establ ref range) Glucose 156 H (74-99) mg/dL Calcium 8.5 (8.5-10.1) mg/dL Phosphorus 4.2 (2.6-4.7) mg/dL Magnesium 2.0 (1.8-2.4) mg/dL Total Bilirubin 0.6 (0.2-1.0) mg/dL AST 34 (15-37) U/L ALT 77 H (16-63) U/L Alkaline Phosphatase 75 (46-116) U/L Total Protein 6.7 (6.4-8.2) g/dL Albumin 3.2 L (3.4-5.0) g/dL Globulin 3.5 Albumin/Globulin Ratio 0.91 Gilbert Results Last 24 Hours: Microbiology 04/23/20 11:31 Aerobic Blood Culture - Preliminary Blood NO GROWTH AFTER 2 DAYS Anaerobic Blood Culture - Preliminary NO GROWTH AFTER 2 DAYS 04/23/20 09:42 Aerobic Blood Culture - Preliminary Blood - Arm, Left NO GROWTH AFTER 2 DAYS Anaerobic Blood Culture - Preliminary NO GROWTH AFTER 2 DAYS 04/23/20 09:48 Gram Stain - Final Sputum - Expectorated Sputum Culture - Preliminary NORMAL RESPIRATORY DERIC 2 DAYS Med Orders - Current: Current Medications Acetaminophen (Tylenol) 650 mg PO Q4H PRN PRN Reason: Pain (Mild 1-3)/fever Albuterol/Ipratropium (Duoneb 3.0-0.5 Mg/3 Ml) 3 ml NEB Q4HRRT [facility] Last Admin: 04/25/20 18:13 Dose: 3 ml Documented by: Heparin Sodium (Porcine) (Heparin Sodium) 5,000 units SUBCUT Q12HR [facility] Last Admin: 04/25/20 09:14 Dose: Not Given Documented by: Ceftriaxone Sodium 1 gm/ (Sodium Chloride) 50 mls @ 100 mls/hr IV Q24H [facility] Last Infusion: 04/25/20 14:04 Dose: Infused Documented by: Azithromycin 500 mg/ Sodium (Chloride) 250 mls @ 250 mls/hr IV Q24H [facility] Last Infusion: 04/25/20 13:27 Dose: Infused Documented by: Magnesium Hydroxide (Milk Of Magnesia) 30 ml PO Q12H PRN PRN Reason: Constipation Last Admin: 04/25/20 08:39 Dose: 30 ml Documented by: Methylprednisolone Sodium Succinate (Solu-Medrol) 40 mg IVPUSH Q8HR [facility] Last Admin: 04/25/20 14:17 Dose: 40 mg Documented by: Ondansetron HCl (Zofran) 4 mg IVPUSH Q6H PRN PRN Reason: Nausea/Vomiting Senna/Docusate Sodium (Senna Plus) 1 tab PO BID PRN PRN Reason: Constipation Last Admin: 04/25/20 17:40 Dose: 1 tab Documented by: Sodium Chloride (Saline Flush) 10 ml FLUSH ASDIRECTED PRN PRN Reason: Keep Vein Open Last Admin: 04/25/20 11:37 Dose: 10 ml Documented by: Discontinued Medications Albuterol/Ipratropium (Duoneb 3.0-0.5 Mg/3 Ml) 3 ml NEB ONETIME ONE Stop: 04/23/20 10:14 Last Admin: 04/23/20 10:19 Dose: 3 ml Documented by: Ceftriaxone Sodium 1 gm/ (Sodium Chloride) 50 mls @ 100 mls/hr IV ONETIME ONE Stop: 04/23/20 11:41 Last Admin: 04/23/20 11:28 Dose: 100 mls/hr Documented by: Azithromycin 500 mg/ Sodium (Chloride) 250 mls @ 250 mls/hr IV ONETIME ONE Stop: 04/23/20 12:11 Last Infusion: 04/23/20 13:51 Dose: Infused Documented by: Methylprednisolone Sodium Succinate (Solu-Medrol) 125 mg IVPUSH ONETIME ONE Stop: 04/23/20 11:13 Last Admin: 04/23/20 11:27 Dose: 125 mg Documented by: Potassium Chloride (Klor-Con 10) 40 meq PO BEDTIME JUDE Last Admin: 04/23/20 13:25 Dose: 40 meq Documented by: Potassium Chloride (Klor-Con 10) 40 meq PO BID [facility] Last Admin: 04/23/20 21:15 Dose: 40 meq Documented by: - Exam General: Alert, Oriented HEENT: Pupils Equal, Pupils Reactive, EOMI, Mucous Membr. Moist/[place] Neck: Supple Lungs: Decreased Breath Sounds, Wheezing Cardiovascular: Regular Rate, Regular Rhythm GI/Abdominal Exam: Normal Bowel Sounds, Soft, Non-Tender, No Organomegaly, No Distention, No Abnormal Bruit, No Mass, Pelvis Stable Back Exam: Normal Inspection, Full Range of Motion Extremities: Normal Inspection, Normal Range of Motion, Non-Tender, No Pedal Edema, Normal Capillary Refill Skin: Warm, Dry, Intact Neurological: No New Focal Deficit Psy/Mental Status: Alert, Normal Affect, Normal Mood - Patient Data Lab Results Last 24 hrs: Laboratory Results - last 24 hr 04/25/20 04/25/20 04/25/20 Range/Units 06:00 06:00 06:00 WBC 11.1 H (5.0-10.0) 10^3/uL RBC 5.19 (4.6-6.2) 10^6/uL Hgb 16.9 (14.0-18.0) g/dL Hct 49.8 (40.0-54.0) % MCV 96.0 (80-100) fL MCH 32.6 (27.0-34.0) pg MCHC 33.9 (33.0-35.0) g/dL Plt Count 109 L (150-450) 10^3/uL Sodium 135 L (136-145) mmol/L Potassium 4.9 (3.5-5.1) mmol/L Chloride 100 (98-107) mmol/L Carbon Dioxide 28 (21-32) mmol/L Anion Gap 11.9 (7-13) mEq/L BUN 18 (7-18) mg/dL Creatinine 0.75 (0.70-1.30) mg/dL Est Cr Clr Drug Dosing 109.98 mL/min Estimated GFR (MDRD) > 60 BUN/Creatinine Ratio 24.0 (No establ ref range) Glucose 156 H (74-99) mg/dL Calcium 8.5 (8.5-10.1) mg/dL Phosphorus 4.2 (2.6-4.7) mg/dL Magnesium 2.0 (1.8-2.4) mg/dL Total Bilirubin 0.6 (0.2-1.0) mg/dL AST 34 (15-37) U/L ALT 77 H (16-63) U/L Alkaline Phosphatase 75 (46-116) U/L Total Protein 6.7 (6.4-8.2) g/dL Albumin 3.2 L (3.4-5.0) g/dL Globulin 3.5 Albumin/Globulin Ratio 0.91 Result Diagrams: 04/25/20 06:00 04/25/20 06:00 Gilbert Results Last 24 hrs: Microbiology 04/23/20 11:31 Aerobic Blood Culture - Preliminary Blood NO GROWTH AFTER 2 DAYS Anaerobic Blood Culture - Preliminary NO GROWTH AFTER 2 DAYS 04/23/20 09:42 Aerobic Blood Culture - Preliminary Blood - Arm, Left NO GROWTH AFTER 2 DAYS Anaerobic Blood Culture - Preliminary NO GROWTH AFTER 2 DAYS 04/23/20 09:48 Gram Stain - Final Sputum - Expectorated Sputum Culture - Preliminary NORMAL RESPIRATORY DERIC 2 DAYS Sepsis Event Note - Evaluation Sepsis Screening Result: No Definite Risk - Focused Exam Vital Signs: Vital Signs Temp Pulse Resp BP Pulse Ox Pulse Ox 04/25/20 18:40 85 95 04/25/20 16:00 98.1 F 80 18 137/83 94 L 04/25/20 13:00 94 04/25/20 12:38 98.7 F 18 153/89 H 95 - Problem List Review Problem List Initiated/Reviewed/Updated: Yes - My Orders Last 24 Hours: My Active Orders 04/25/20 16:35 Docusate Sodium/Sennosides [Senna Plus] 1 tab PO BID PRN - Plan Plan:: #COPD exacerbation #Probable pneumonia #Acute respiratory failure with hypoxia due to above Patient presented to the ED for evaluation of increasing shortness of breath He was hypoxic requiring supplemental oxygen, 2 L via nasal cannula Chest x-ray concerning for pneumonia COVID-19 screen negative. Influenza AMB negative DuoNebs every 4 hours Solu-Medrol 40 mg every 8 hours Sputum for Gram stain and culture and Blood culture Continue IV ceftriaxone and azithromycin Patient counseled tobacco cessation #Hypokalemia Replaced #Transaminitis AST/ALT elevated at 137/115 Right upper quadrant ultrasound showed fatty liver Acute hepatitis profile Repeat LFTs trending down #Continue tobacco abuse Counseled to quit Provide with nicotine patch
[2020-04-26] MEDS: Albuterol/Ipratropium 3.0-0.5 MG/3 ML Neb Soln NEB SCH ×4 (03:13→15:31)
[2020-04-26] MEDS: methylPREDNISolone Sodium Succinate 40 MG/1 ML SDV IVPUSH SCH ×2 (06:22→14:37)
[2020-04-26 07:01] LABS: ANION GAP 9.7 mEq/L (7-13); CHLORIDE,CL 99 mmol/L (98-107); SODIUM,NA 135 mmol/L (136-145)
[2020-04-26] MEDS: Heparin Sodium 5,000 Units/ML Vial SUBCUT SCH (09:11)
[2020-04-26] MEDS: Sodium Polystyrene Sulfonate 15 GM/60 ML Susp 60 ML Bot PO SCH ×2 (09:12→14:16)
--- NOTE | 2020-04-26 11:29 | PCM.DCSUM1 ---
Discharge Summary - Hospital Course Free Text/Narrative:: Jasvir is 55-year-old male with past medical history significant for active tobacco abuse, COPD who presented to the ED from clinic for shortness of breath and hypoxia. Chest x-ray showed perihilar opacity. Patient was treated for acute hypoxic respiratory failure due to COPD exacerbation and pneumonia. Clinical status improved and he was discharged. Diagnosis: Stroke: No - Discharge Data Discharge Date: 04/26/20 Discharge Disposition: Home, Self-Care 01 Condition: Good - Referral to Home Health Primary Care Physician: PCP None - Patient Summary/Data Consults: Consultations 04/23/20 11:49 PT Evaluation and Treatment [CONS] Routine Respiratory Care Assess and Treatment [CONS] Routine - Discharge Plan *PRESCRIPTION DRUG MONITORING PROGRAM REVIEWED*: Not Applicable *COPY OF PRESCRIPTION DRUG MONITORING REPORT IN PATIENT ROSIE: Not Applicable Prescriptions/Med Rec: Albuterol Sulfate [Albuterol Sulfate HFA] 2 puff INH Q6H PRN #1 inhaler PRN Reason: Shortness Of Breath Amoxicillin/Clavulanate K [Augmentin 875-125 MG] 1 tab PO BID #8 tablet predniSONE [Prednisone] 40 mg PO DAILY #2 tablet Budesonide/Formoterol Fumarate [Symbicort 160-4.5 Mcg Inhaler] 6 gm IH BID #1 hfa.aer.ad Home Medications: Home Meds Albuterol Sulfate [Albuterol Sulfate HFA] 2 puff INH Q6H PRN #1 inhaler 04/26/20 [Rx] Amoxicillin/Clavulanate K [Augmentin 875-125 MG] 1 tab PO BID #8 tablet 04/26/20 [Rx] Budesonide/Formoterol Fumarate [Symbicort 160-4.5 Mcg Inhaler] 6 gm IH BID #1 hfa.aer.ad 04/26/20 [Rx] predniSONE [Prednisone] 40 mg PO DAILY #2 tablet 04/26/20 [Rx] Referrals: Mabel Munoz NP [Ordering Only Provider] - - Discharge Summary/Plan Comment DC Time >30 min.: Yes - General Info Date of Service: 04/26/20 Admission Dx/Problem (Free Text: COPD exacerbation Subjective Update: Patient seen and examined this morning. Still off oxygen. Afebrile overnight. Functional Status: Reports: Pain Controlled - Review of Systems General: Reports: No Symptoms HEENT: Reports: No Symptoms Pulmonary: Reports: No Symptoms Cardiovascular: Reports: No Symptoms Gastrointestinal: Reports: No Symptoms Genitourinary: Reports: No Symptoms Musculoskeletal: Reports: No Symptoms Skin: Reports: No Symptoms Neurological: Reports: No Symptoms Psychiatric: Reports: No Symptoms - Patient Data Vitals - Most Recent: Last Vital Signs Temp 97.6 F 04/26/20 08:00 Pulse 75 04/26/20 08:00 Resp 18 04/26/20 08:00 BP 135/80 04/26/20 08:00 Pulse Ox 100 04/26/20 08:00 Weight - Most Recent: 164 lb I&O - Last 24 hours: Intake & Output 04/25/20 04/26/20 04/26/20 22:59 06:59 14:59 Intake Total 636 400 610 Balance 636 400 610 Lab Results - Last 24 hrs: Laboratory Results - last 24 hr 04/26/20 Range/Units 06:20 Sodium 135 L (136-145) mmol/L Potassium 5.7 H (3.5-5.1) mmol/L Chloride 99 (98-107) mmol/L Carbon Dioxide 32 (21-32) mmol/L Anion Gap 9.7 (7-13) mEq/L BUN 17 (7-18) mg/dL Creatinine 0.79 (0.70-1.30) mg/dL Est Cr Clr Drug Dosing 104.41 mL/min Estimated GFR (MDRD) > 60 BUN/Creatinine Ratio 21.5 (No establ ref range) Glucose 194 H (74-99) mg/dL Calcium 8.5 (8.5-10.1) mg/dL Total Bilirubin 0.4 (0.2-1.0) mg/dL AST 27 (15-37) U/L ALT 67 H (16-63) U/L Alkaline Phosphatase 72 (46-116) U/L Total Protein 6.7 (6.4-8.2) g/dL Albumin 3.1 L (3.4-5.0) g/dL Globulin 3.6 Albumin/Globulin Ratio 0.86 MARTY Results - Last 24 hrs: Microbiology 04/23/20 09:42 Aerobic Blood Culture - Preliminary Blood - Arm, Left NO GROWTH AFTER 3 DAYS Anaerobic Blood Culture - Preliminary NO GROWTH AFTER 3 DAYS 04/23/20 11:31 Aerobic Blood Culture - Preliminary Blood NO GROWTH AFTER 2 DAYS Anaerobic Blood Culture - Preliminary NO GROWTH AFTER 2 DAYS 04/23/20 09:48 Gram Stain - Final Sputum - Expectorated Sputum Culture - Preliminary NORMAL RESPIRATORY DERIC 2 DAYS Med Orders - Current: Current Medications Acetaminophen (Tylenol) 650 mg PO Q4H PRN PRN Reason: Pain (Mild 1-3)/fever Albuterol/Ipratropium (Duoneb 3.0-0.5 Mg/3 Ml) 3 ml NEB Q4HRRT [facility] Last Admin: 04/26/20 07:40 Dose: 3 ml Documented by: Heparin Sodium (Porcine) (Heparin Sodium) 5,000 units SUBCUT Q12HR [facility] Last Admin: 04/26/20 09:11 Dose: 5,000 units Documented by: Ceftriaxone Sodium 1 gm/ (Sodium Chloride) 50 mls @ 100 mls/hr IV Q24H [facility] Last Infusion: 04/25/20 14:04 Dose: Infused Documented by: Azithromycin 500 mg/ Sodium (Chloride) 250 mls @ 250 mls/hr IV Q24H [facility] Last Infusion: 04/25/20 13:27 Dose: Infused Documented by: Magnesium Hydroxide (Milk Of Magnesia) 30 ml PO Q12H PRN PRN Reason: Constipation Last Admin: 04/25/20 22:32 Dose: 30 ml Documented by: Methylprednisolone Sodium Succinate (Solu-Medrol) 40 mg IVPUSH Q8HR [facility] Last Admin: 04/26/20 06:22 Dose: 40 mg Documented by: Ondansetron HCl (Zofran) 4 mg IVPUSH Q6H PRN PRN Reason: Nausea/Vomiting Senna/Docusate Sodium (Senna Plus) 1 tab PO BID PRN PRN Reason: Constipation Last Admin: 04/25/20 17:40 Dose: 1 tab Documented by: Sodium Chloride (Saline Flush) 10 ml FLUSH ASDIRECTED PRN PRN Reason: Keep Vein Open Last Admin: 04/25/20 11:37 Dose: 10 ml Documented by: Sodium Polystyrene Sulfonate (Kayexalate) 30 gm PO Q6H [facility] Last Admin: 04/26/20 09:12 Dose: 30 gm Documented by: Discontinued Medications Albuterol/Ipratropium (Duoneb 3.0-0.5 Mg/3 Ml) 3 ml NEB ONETIME ONE Stop: 04/23/20 10:14 Last Admin: 04/23/20 10:19 Dose: 3 ml Documented by: Ceftriaxone Sodium 1 gm/ (Sodium Chloride) 50 mls @ 100 mls/hr IV ONETIME ONE Stop: 04/23/20 11:41 Last Admin: 04/23/20 11:28 Dose: 100 mls/hr Documented by: Azithromycin 500 mg/ Sodium (Chloride) 250 mls @ 250 mls/hr IV ONETIME ONE Stop: 04/23/20 12:11 Last Infusion: 04/23/20 13:51 Dose: Infused Documented by: Methylprednisolone Sodium Succinate (Solu-Medrol) 125 mg IVPUSH ONETIME ONE Stop: 04/23/20 11:13 Last Admin: 04/23/20 11:27 Dose: 125 mg Documented by: Potassium Chloride (Klor-Con 10) 40 meq PO BEDTIME JUDE Last Admin: 04/23/20 13:25 Dose: 40 meq Documented by: Potassium Chloride (Klor-Con 10) 40 meq PO BID [facility] Last Admin: 04/23/20 21:15 Dose: 40 meq Documented by: - Exam General: Reports: Alert HEENT: Reports: Pupils Equal, Pupils Reactive, EOMI, Mucous Membr. Moist/[place] Neck: Reports: Supple Lungs: Reports: Clear to Auscultation, Normal Respiratory Effort Cardiovascular: Reports: Regular Rate, Regular Rhythm GI/Abdominal Exam: Normal Bowel Sounds, Soft, Non-Tender, No Organomegaly, No Distention, No Abnormal Bruit, No Mass, Pelvis Stable Back Exam: Reports: Normal Inspection, Full Range of Motion Extremities: Normal Inspection, Normal Range of Motion, Non-Tender, No Pedal Edema, Normal Capillary Refill Skin: Reports: Warm, Dry, Intact Neurological: Reports: No New Focal Deficit Psy/Mental Status: Reports: Alert, Normal Affect, Normal Mood
[2020-04-26] MEDS ORDERED: Insulin Regular, Human 100 Units/ML 3 ML Vial IVPUSH ONE (12:47)
[2020-04-26] MEDS ORDERED: 50% Dextrose in Water 50 ML Syringe IV ONE (12:47)
[2020-04-26] MEDS ORDERED: Sodium Chloride 0.9% 10 ML Syringe FLUSH PRN (12:47)
[2020-04-26] MEDS: Azithromycin 500 MG in Sodium Chloride 0.9% 250 ML IV SCH (13:29)
[2020-04-26] MEDS: cefTRIAXone 1 GM in Sodium Chloride 0.9% 50 ML IV SCH (14:53)
== END 2020-04-26 17:00 | disposition home or self-care (01) | DRG 193 ==
LOC: DL.MS 11:25
PROVIDERS: ADMIT Student in an Organized Health Care Education/Training Program; ATTEND Internal Medicine
DX: J18.9 Pneumonia, unspecified organism (principal); J96.01 Acute respiratory failure with hypoxia; J44.0 Chronic obstructive pulmonary disease with (acute) lower respiratory infection; J44.1 Chronic obstructive pulmonary disease with (acute) exacerbation; F17.200 Nicotine dependence, unspecified, uncomplicated; E87.6 Hypokalemia; R74.01 Elevation of levels of liver transaminase levels; Z20.822 Contact with and (suspected) exposure to COVID-19; Z71.6 Tobacco abuse counseling; Z79.899 Other long term (current) drug therapy; Z99.81 Dependence on supplemental oxygen
CPT/HCPCS: 0240U; 36415; 71046; 76705; 80053; 80307; 82962; 83605; 83735; 83880; 84100; 84132; 84484; 85025; 85027; 87040; 87070; 87205; 93005; 94640; 97162-GP; 99284; 99285-25; A9270-GY; J0456; J0696; J1644; J1815-GY; J2920; J2930; J7050; J7620-GY

== ENCOUNTER 2020-07-17 09:35 | Emergency (ER) | payer MEDICAID ==
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
[2020-07-17] MEDS ORDERED: Bacitracin Oint 1 GM U/D Packet TOP ONE (10:09)
--- NOTE | 2020-07-17 10:32 | CR ---
PROCEDURE INFORMATION: Exam: XR Left Toe(s) Exam date and time: 07/17/2020 10:07 AM Age: 55 years old Clinical indication: Other: Hit toe on table TECHNIQUE: Imaging protocol: XR Left toes. Views: Minimum 2 views. COMPARISON: No relevant prior studies available. FINDINGS: Bones/joints: No evidence of fracture. Soft tissues: Soft tissue swelling. IMPRESSION: No fracture.
== END 2020-07-17 10:40 | disposition home or self-care (01) ==
LOC: DL.ED 09:35
DX: S91.205A Unspecified open wound of left lesser toe(s) with damage to nail, initial encounter (principal); J44.9 Chronic obstructive pulmonary disease, unspecified; W22.8XXA Striking against or struck by other objects, initial encounter
CPT/HCPCS: 73660-T4; 99282; 99283-25

== ENCOUNTER 2020-08-03 21:23 | Emergency (ER) | payer MEDICAID ==
[2020-08-03] MEDS ORDERED: Bacitracin Oint 1 GM U/D Packet TOP ONE (23:16)
[2020-08-03] MEDS ORDERED: Lidocaine 1% 30 ML SDV INJECT ONE (23:16)
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
== END 2020-08-04 00:01 | disposition home or self-care (01) ==
LOC: DL.ED 21:23
DX: S51.812A Laceration without foreign body of left forearm, initial encounter (principal); J44.9 Chronic obstructive pulmonary disease, unspecified; Z72.0 Tobacco use; W20.8XXA Other cause of strike by thrown, projected or falling object, initial encounter; W26.8XXA Contact with other sharp object(s), not elsewhere classified, initial encounter
CPT/HCPCS: 12001; 99282; 99282-25

== ENCOUNTER 2021-03-03 15:55 | Observation (INO) | payer MEDICAID ==
--- NOTE | 2021-03-03 16:38 | EDM.PDOC ---
ED HPI GENERAL MEDICAL PROBLEM - General Chief Complaint: Respiratory Problem Stated Complaint: SHORT OF BREATH, OXYGEN LOW Time Seen by Provider: 03/03/21 16:38 Source of Information: Reports: Patient, Provider (Mabel Munoz NP), RN, RN Notes Reviewed History Limitations: Reports: Uncooperative - History of Present Illness INITIAL COMMENTS - FREE TEXT/NARRATIVE: Pt sent from clinic by Mabel Munoz NP with c/o several days of progressively worsening shortness of breath with cough, and wheezing. Pt denies fever, but was found to have temp. of 99F in clinic today. Pt denies chest pain, edema, or orthopnea. He admits to productive cough with white sputum. Pt claims he had COVID infection in November 2020 and recovered. He is a intermediate (life long) smoker. Recently he has tried to cut back to 1/2 PPD of cigarettes. Pt states he has asked his doctor for a nebulizer several times, but they haven't given him one. Onset: Gradual, Unknown/Unsure Duration: Day(s): (3-5), Getting Worse Location: Reports: Chest Quality: Reports: Other (Denies pain) Severity: Severe Improves with: Reports: None Worsens with: Reports: None Associated Symptoms: Reports: No Other Symptoms - Related Data Allergies Allergy/AdvReac Type Severity Reaction Status Date / Time No Known Allergies Allergy Verified 03/03/21 16:51 Past Medical History Respiratory History: Reports: COPD, Other (See Below) (Tobacco dependence/cigarettes) - Infectious Disease History Infectious Disease History: Reports: Novel Coronavirus Social & Family History - Family History Family Medical History: Unobtainable - Tobacco Use Tobacco Use Status *Q: Current Every Day Tobacco User Tobacco Use Within Last Twelve Months: Cigarettes Years of Tobacco use: 38 Smoking Cessation Information Provided To Patient: Patient Refused - Caffeine Use Caffeine Use: Reports: Coffee, Soda - Living Situation & Occupation Living situation: Reports: Alone Occupation: Employed ED ROS GENERAL - Review of Systems Review Of Systems: Comprehensive ROS is negative, except as noted in HPI. ED EXAM, GENERAL - Physical Exam Exam: See Below Exam Limited By: No Limitations General Appearance: Alert, No Apparent Distress, Other (Chronically ill appearing) Eye Exam: Bilateral Eye: Normal Inspection Ears: Normal External Exam, Hearing Grossly Normal Nose: Normal Mucosa, No Blood Throat/Mouth: Normal Inspection, Normal Lips, Normal Voice, No Airway Compromise Head: Atraumatic, Normocephalic Neck: Normal Inspection, Non-Tender, Full Range of Motion Respiratory/Chest: No Respiratory Distress, No Accessory Muscle Use, Decreased Breath Sounds, Crackles, Wheezing. No: Rales, Rhonchi Cardiovascular: Regular Rate, Rhythm, No Edema, Tachycardia GI/Abdominal: Normal Bowel Sounds, Soft, Non-Tender Extremities: Normal Inspection, No Pedal Edema Neurological: Alert, Oriented, CN II-XII Intact, Normal Cognition, Normal Gait, No Motor/Sensory Deficits Psychiatric: Normal Mood, Flat Affect Skin Exam: Warm, Dry, Intact, Normal Color, No Rash Course - Vital Signs Last Recorded V/S: Last Vital Signs Temp 98.1 F 03/03/21 17:16 Pulse 78 03/03/21 17:16 Resp 16 03/03/21 17:16 BP 128/59 L 03/03/21 17:16 Pulse Ox 95 03/03/21 17:16 - Orders/Labs/Meds Orders: Active Orders 24 hr Category Date Time Status Peripheral IV Care [RC] . DIRECTED Care 03/03/21 16:39 Active RT Aerosol Therapy [RC] ASDIRECTED Care 03/03/21 16:40 Active D Dimer [D-DIMER QUANTITATIVE] [COAG] Stat Lab 03/03/21 17:04 Results PTT,PARTIAL THROMBOPLSTIN TIME [COAG] Stat Lab 03/03/21 17:04 Results Sodium Chloride 0.9% [Saline Flush] Med 03/03/21 16:38 Active 10 ml FLUSH ASDIRECTED PRN Peripheral IV Insertion Adult [OM.PC] Stat Oth 03/03/21 16:39 Ordered Medication Orders Sodium Chloride (Sodium Chloride 0.9% 10 Ml Syringe) 10 ml FLUSH ASDIRECTED PRN PRN Reason: Keep Vein Open Labs: Laboratory Tests 03/03/21 03/03/21 03/03/21 Range/Units 16:30 17:04 17:04 WBC 7.3 (5.0-10.0) 10^3/uL RBC 5.54 (4.6-6.2) 10^6/uL Hgb 17.6 (14.0-18.0) g/dL Hct 51.8 (40.0-54.0) % MCV 93.5 (80-100) fL MCH 31.8 (27.0-34.0) pg MCHC 34.0 (33.0-35.0) g/dL Plt Count 107 L (150-450) 10^3/uL Neut % (Auto) 69.5 (42.2-75.2) % Lymph % (Auto) 19.2 L (20.5-50.1) % [place] % (Auto) 10.7 H (2-8) % Eos % (Auto) 0.5 L (1.0-3.0) % Baso % (Auto) 0.1 (0.0-1.0) % D-Dimer, Quantitative (0-400) ng/mL Sodium 145 (136-145) mmol/L Potassium 4.9 (3.5-5.1) mmol/L Chloride 104 (98-107) mmol/L Carbon Dioxide 35 H (21-32) mmol/L Anion Gap 10.9 (7-13) mEq/L BUN 18 (7-18) mg/dL Creatinine 0.84 (0.70-1.30) mg/dL Est Cr Clr Drug Dosing TNP Estimated GFR (MDRD) > 60 BUN/Creatinine Ratio 21.4 (No establ ref range) Glucose 115 H (70-99) mg/dL Lactic Acid (0.4-2.0) mmol/L Calcium 8.7 (8.5-10.1) mg/dL Total Bilirubin 0.2 (0.2-1.0) mg/dL AST 36 (15-37) U/L ALT 52 (16-63) U/L Alkaline Phosphatase 58 (46-116) U/L B-Natriuretic Peptide 11 (0-100) pg/ml Total Protein 7.0 (6.4-8.2) g/dL Albumin 3.3 L (3.4-5.0) g/dL Globulin 3.7 Albumin/Globulin Ratio 0.89 Ethyl Alcohol 10 (0) mg/dL Influenza Type A RNA Negative (NEGATIVE) RSV RNA (INAAT) Negative (NEGATIVE) Influenza Type B RNA Negative (NEGATIVE) SARS-CoV-2 RNA ([place]SON) Negative (NEGATIVE) 03/03/21 03/03/21 Range/Units 17:04 17:04 WBC (5.0-10.0) 10^3/uL RBC (4.6-6.2) 10^6/uL Hgb (14.0-18.0) g/dL Hct (40.0-54.0) % MCV (80-100) fL MCH (27.0-34.0) pg MCHC (33.0-35.0) g/dL Plt Count (150-450) 10^3/uL Neut % (Auto) (42.2-75.2) % Lymph % (Auto) (20.5-50.1) % [place] % (Auto) (2-8) % Eos % (Auto) (1.0-3.0) % Baso % (Auto) (0.0-1.0) % D-Dimer, Quantitative 171 (0-400) ng/mL Sodium (136-145) mmol/L Potassium (3.5-5.1) mmol/L Chloride (98-107) mmol/L Carbon Dioxide (21-32) mmol/L Anion Gap (7-13) mEq/L BUN (7-18) mg/dL Creatinine (0.70-1.30) mg/dL Est Cr Clr Drug Dosing Estimated GFR (MDRD) BUN/Creatinine Ratio (No establ ref range) Glucose (70-99) mg/dL Lactic Acid 1.5 (0.4-2.0) mmol/L Calcium (8.5-10.1) mg/dL Total Bilirubin (0.2-1.0) mg/dL AST (15-37) U/L ALT (16-63) U/L Alkaline Phosphatase (46-116) U/L B-Natriuretic Peptide (0-100) pg/ml Total Protein (6.4-8.2) g/dL Albumin (3.4-5.0) g/dL Globulin Albumin/Globulin Ratio Ethyl Alcohol (0) mg/dL Influenza Type A RNA (NEGATIVE) RSV RNA (INAAT) (NEGATIVE) Influenza Type B RNA (NEGATIVE) SARS-CoV-2 RNA (R[place]INSON) (NEGATIVE) Meds: Medications Generic Name Dose Route Start Last Admin Trade Name Freq PRN Reason Stop Dose Admin Sodium Chloride 10 ml 03/03/21 16:38 Sodium Chloride 0.9% 10 Ml Syringe FLUSH ASDIRECTED PRN Keep Vein Open Discontinued Medications Generic Name Dose Route Start Last Admin Trade Name Freq PRN Reason Stop Dose Admin Albuterol/Ipratropium 3 ml 03/03/21 16:40 03/03/21 17:05 Albuterol/Ipratropium 3.0-0.5 Mg/3 Ml Neb Soln NEB 03/03/21 16:41 3 ml ONETIME ONE Administration Methylprednisolone Sodium Succinate 125 mg 03/03/21 16:40 Methylprednisolone Sodium Succinate 125 Mg/2 Ml Sdv IVPUSH 03/03/21 16:41 ONETIME ONE Ondansetron HCl 4 mg 03/03/21 16:40 Ondansetron 4 Mg/2 Ml Sdv IV 03/03/21 16:41 ONETIME ONE - Radiology Interpretation Free Text/Narrative:: [facility] Final Radiology Report Call: [phone] assistance Online chat: [email or web address] Name: DAHLIA STEELE Age: 55Years M Date: 03/03/2021 SSN: -- : [id number] Study: CR CHEST 1V FRONTAL Requesting Physician: ANGELIKA OQUENDO Images: 1 Addl Studies: Provided Clinical History: chest pain Contrast: Contrast Medium: Contrast Amount: Contrast Method: CONFIDENTIALITY STATEMENT This report is intended only for use by the referring physician, and only in accordance with law. If you received this in error, call [phone]. Page 1 of 1 PROCEDURE INFORMATION: Exam: XR Chest Exam date and time: 03/03/2021 4:43 PM Age: 55 years old Clinical indication: Pain; Left-sided; Additional info: Chest pain TECHNIQUE: Imaging protocol: XR of the chest. Views: 1 view. COMPARISON: No relevant prior studies available. FINDINGS: Lungs: Unremarkable. No consolidation. Pleural spaces: Unremarkable. No pleural effusion. No pneumothorax. Heart/Mediastinum: Unremarkable. No cardiomegaly. Bones/joints: Old left rib fractures. Prominent costochondral calcifications. Degenerative arthritis in the shoulders. IMPRESSION: No acute findings Thank you for allowing us to participate in the care of your patient. Dictated and Authenticated by: Amy Foley MD 03/03/2021 4:58 PM Central Time ([place] & [place]) - Re-Assessments/Exams Free Text/Narrative Re-Assessment/Exam: 03/03/21 17:58 Pt declines to be admitted, but will accept outpt. prescriptions and an order for a home nebulizer. Departure - Departure Time of Disposition: 17:59 Disposition: Home, Self-Care 01 Condition: Fair Clinical Impression: Acute exacerbation of chronic obstructive pulmonary disease (COPD) - Discharge Information *PRESCRIPTION DRUG MONITORING PROGRAM REVIEWED*: Not Applicable *COPY OF PRESCRIPTION DRUG MONITORING REPORT IN PATIENT ROSIE: Not Applicable Instructions: Chronic Obstructive Pulmonary Disease Exacerbation, [id number], Chronic Obstructive Pulmonary Disease, [id number], Steps to Quit Smoking, [id number] Forms: ED Department Discharge Additional Instructions: Rx: Prednisone 20mg Rx: DuoNeb nebulizer solution Order for Nebulizer machine/equipment (Take to [facility] at [facility], [address], [place], [place].) Try to quit smoking. Follow up in clinic next week for recheck. Return to ER or call the ambulance if you develop shortness of breath or breathi ng difficulty. Sepsis Event Note (ED) - Focused Exam Vital Signs: Vital Signs Temp Pulse Resp BP Pulse Ox 03/03/21 17:16 98.1 F 78 16 128/59 L 95 03/03/21 17:05 92 - My Orders Last 24 Hours: My Active Orders 03/03/21 16:38 Sodium Chloride 0.9% [Saline Flush] 10 ml FLUSH ASDIRECTED PRN 03/03/21 16:39 Peripheral IV Care [RC] . DIRECTED Peripheral IV Insertion Adult [OM.PC] Stat 03/03/21 16:40 RT Aerosol Therapy [RC] ASDIRECTED 03/03/21 17:04 D Dimer [D-DIMER QUANTITATIVE] [COAG] Stat PTT,PARTIAL THROMBOPLSTIN TIME [COAG] Stat - Assessment/Plan Last 24 Hours: My Active Orders 03/03/21 16:38 Sodium Chloride 0.9% [Saline Flush] 10 ml FLUSH ASDIRECTED PRN 03/03/21 16:39 Peripheral IV Care [RC] . DIRECTED Peripheral IV Insertion Adult [OM.PC] Stat 03/03/21 16:40 RT Aerosol Therapy [RC] ASDIRECTED 03/03/21 17:04 D Dimer [D-DIMER QUANTITATIVE] [COAG] Stat PTT,PARTIAL THROMBOPLSTIN TIME [COAG] Stat
[2021-03-03] MEDS ORDERED: Albuterol/Ipratropium 3.0-0.5 MG/3 ML Neb Soln NEB ONE ×2 (16:40→18:16)
[2021-03-03] MEDS ORDERED: methylPREDNISolone Sodium Succinate 125 MG/2 ML SDV IVPUSH ONE (16:40)
[2021-03-03] MEDS ORDERED: Ondansetron 4 MG/2 ML SDV IV ONE (16:40)
--- NOTE | 2021-03-03 16:59 | CR ---
PROCEDURE INFORMATION: Exam: XR Chest Exam date and time: 03/03/2021 4:43 PM Age: 55 years old Clinical indication: Pain; Left-sided; Additional info: Chest pain TECHNIQUE: Imaging protocol: XR of the chest. Views: 1 view. COMPARISON: No relevant prior studies available. FINDINGS: Lungs: Unremarkable. No consolidation. Pleural spaces: Unremarkable. No pleural effusion. No pneumothorax. Heart/Mediastinum: Unremarkable. No cardiomegaly. Bones/joints: Old left rib fractures. Prominent costochondral calcifications. Degenerative arthritis in the shoulders. IMPRESSION: No acute findings
[2021-03-03 17:26] LABS: CORONAVIRUS COVID-19 NAA NEGATIVE (NEGATIVE); RESPIRATORY SYNCYTIAL VIR NAA NEGATIVE (NEGATIVE)
[2021-03-03 17:31] LABS: ANION GAP 10.9 mEq/L (7-13); CHLORIDE,CL 104 mmol/L (98-107); SODIUM,NA 145 mmol/L (136-145)
[2021-03-03 17:48] LABS: PTT,PARTIAL THROMBOPLSTIN TIME 23.5 SEC (22.0-34.0)
[2021-03-03] MEDS ORDERED: Ondansetron 4 MG Tab.DIS ONE (18:10)
[2021-03-03] MEDS: Sodium Chloride 0.9% 10 ML Syringe FLUSH PRN (18:31)
[2021-03-03] MEDS ORDERED: Polyethylene Glycol 3350 Powder 17 GM Packet PO PRN (20:32)
[2021-03-03] MEDS ORDERED: Magnesium Hydroxide 400 MG/5 ML Susp 30 ML Cup PO PRN (20:32)
[2021-03-03] MEDS ORDERED: Ondansetron 4 MG/2 ML SDV IVPUSH PRN (20:32)
[2021-03-03] MEDS ORDERED: Acetaminophen 325 MG Tab PO PRN (20:32)
[2021-03-03] MEDS ORDERED: Azithromycin 250 MG Tab PO ONE (21:00)
--- NOTE | 2021-03-03 21:07 | PCM.HP ---
H&P History of Present Illness - General Date of Service: 03/03/21 Admit Problem/Dx: Admission Diagnosis/Problem Admission Diagnosis/Problem Acute bronchitis - Related Data Allergies/Adverse Reactions: Allergies Allergy/AdvReac Type Severity Reaction Status Date / Time No Known Allergies Allergy Verified 03/03/21 16:51 Home Medications: Home Meds Albuterol Sulfate [Proair Hfa] 8.5 gm IH Q6H PRN 03/03/21 [History] Past Medical History - Past Health History Medical/Surgical History: Denies Medical/Surgical History Respiratory History: Reports: COPD, Other (See Below) (Tobacco de pendence/cigarettes) - Infectious Disease History Infectious Disease History: Reports: Novel Coronavirus Social & Family History - Family History Family Medical History: Unobtainable - Tobacco Use Tobacco Use Status *Q: Current Every Day Tobacco User Years of Tobacco use: 38 Packs/Tins Daily: 1 - Caffeine Use Caffeine Use: Reports: None - Recreational Drug Use Recreational Drug Use: No - Living Situation & Occupation Living situation: Reports: Alone Occupation: Employed H&P Review of Systems - Review of Systems: Review Of Systems: Comprehensive ROS is negative, except as noted in HPI. Exam - Exam Exam: See Below - Vital Signs Vital Signs: Last Vital Signs Temp 98.1 F 03/03/21 17:16 Pulse 78 03/03/21 17:16 Resp 16 03/03/21 17:16 BP 128/59 L 03/03/21 17:16 Pulse Ox 95 03/03/21 17:16 - Patient Data Lab Results Last 24 hrs: Laboratory Results - last 24 hr 03/03/21 03/03/21 03/03/21 Range/Units 16:30 17:04 17:04 WBC 7.3 (5.0-10.0) 10^3/uL RBC 5.54 (4.6-6.2) 10^6/uL Hgb 17.6 (14.0-18.0) g/dL Hct 51.8 (40.0-54.0) % MCV 93.5 (80-100) fL MCH 31.8 (27.0-34.0) pg MCHC 34.0 (33.0-35.0) g/dL Plt Count 107 L (150-450) 10^3/uL Neut % (Auto) 69.5 (42.2-75.2) % Lymph % (Auto) 19.2 L (20.5-50.1) % [place] % (Auto) 10.7 H (2-8) % Eos % (Auto) 0.5 L (1.0-3.0) % Baso % (Auto) 0.1 (0.0-1.0) % APTT (22.0-34.0) SEC D-Dimer, Quantitative (0-400) ng/mL Sodium 145 (136-145) mmol/L Potassium 4.9 (3.5-5.1) mmol/L Chloride 104 (98-107) mmol/L Carbon Dioxide 35 H (21-32) mmol/L Anion Gap 10.9 (7-13) mEq/L BUN 18 (7-18) mg/dL Creatinine 0.84 (0.70-1.30) mg/dL Est Cr Clr Drug Dosing TNP Estimated GFR (MDRD) > 60 BUN/Creatinine Ratio 21.4 (No establ ref range) Glucose 115 H (70-99) mg/dL Lactic Acid (0.4-2.0) mmol/L Calcium 8.7 (8.5-10.1) mg/dL Total Bilirubin 0.2 (0.2-1.0) mg/dL AST 36 (15-37) U/L ALT 52 (16-63) U/L Alkaline Phosphatase 58 (46-116) U/L B-Natriuretic Peptide 11 (0-100) pg/ml Total Protein 7.0 (6.4-8.2) g/dL Albumin 3.3 L (3.4-5.0) g/dL Globulin 3.7 Albumin/Globulin Ratio 0.89 Ethyl Alcohol 10 (0) mg/dL Influenza Type A RNA Negative (NEGATIVE) RSV RNA (INAAT) Negative (NEGATIVE) Influenza Type B RNA Negative (NEGATIVE) SARS-CoV-2 RNA (ROBINSON) Negative (NEGATIVE) 03/03/21 03/03/21 Range/Units 17:04 17:04 WBC (5.0-10.0) 10^3/uL RBC (4.6-6.2) 10^6/uL Hgb (14.0-18.0) g/dL Hct (40.0-54.0) % MCV (80-100) fL MCH (27.0-34.0) pg MCHC (33.0-35.0) g/dL Plt Count (150-450) 10^3/uL Neut % (Auto) (42.2-75.2) % Lymph % (Auto) (20.5-50.1) % [place] % (Auto) (2-8) % Eos % (Auto) (1.0-3.0) % Baso % (Auto) (0.0-1.0) % APTT 23.5 (22.0-34.0) SEC D-Dimer, Quantitative 171 (0-400) ng/mL Sodium (136-145) mmol/L Potassium (3.5-5.1) mmol/L Chloride (98-107) mmol/L Carbon Dioxide (21-32) mmol/L Anion Gap (7-13) mEq/L BUN (7-18) mg/dL Creatinine (0.70-1.30) mg/dL Est Cr Clr Drug Dosing Estimated GFR (MDRD) BUN/Creatinine Ratio (No establ ref range) Glucose (70-99) mg/dL Lactic Acid 1.5 (0.4-2.0) mmol/L Calcium (8.5-10.1) mg/dL Total Bilirubin (0.2-1.0) mg/dL AST (15-37) U/L ALT (16-63) U/L Alkaline Phosphatase (46-116) U/L B-Natriuretic Peptide (0-100) pg/ml Total Protein (6.4-8.2) g/dL Albumin (3.4-5.0) g/dL Globulin Albumin/Globulin Ratio Ethyl Alcohol (0) mg/dL Influenza Type A RNA (NEGATIVE) RSV RNA (INAAT) (NEGATIVE) Influenza Type B RNA (NEGATIVE) SARS-CoV-2 RNA (ROBINSON) (NEGATIVE) Result Diagrams: 03/03/21 17:04 03/03/21 17:04 *Q Meaningful Use (ADM) - VTE *Q VTE Criteria *Q: zcxz Problem List Initiated/Reviewed/Updated: No Orders Last 24hrs: Active Orders 24 hr Category Date Time Status Patient Status [ADT] Routine ADT 03/03/21 20:32 Ordered Antiembolic Devices [RC] PER UNIT ROUTINE Care 03/03/21 20:36 Ordered Intake and Output [RC] QSHIFT Care 03/03/21 20:35 Ordered Nurse Communication: Isolation [RC] ASDIRECTED Care 03/03/21 20:46 Active Oxygen Therapy [RC] PRN Care 03/03/21 20:32 Ordered Peripheral IV Care [RC] . DIRECTED Care 03/03/21 16:39 Active Pulse Oximetry [RC] CONTINUOUS Care 03/03/21 20:35 Ordered RT Aerosol Therapy [RC] ASDIRECTED Care 03/03/21 16:40 Active RT Aerosol Therapy [RC] ASDIRECTED Care 03/03/21 18:16 Active RT Aerosol Therapy [RC] ASDIRECTED Care 03/03/21 20:37 Ordered Up ad Shanae [RC] ASDIRECTED Care 03/03/21 20:32 Ordered VTE/DVT Education [RC] PER UNIT ROUTINE Care 03/03/21 20:32 Ordered Vital Signs [RC] Q4H Care 03/03/21 20:32 Ordered Regular Diet [DIET] Diet 03/03/21 Dinner Ordered BLOOD GAS VENOUS [BG] Routine Lab 03/03/21 20:50 Ordered CBC WITH AUTO DIFF [HEME] AM Lab 03/04/21 05:11 Ordered COMPREHENSIVE METABOLIC PN,CMP [CHEM] AM Lab 03/04/21 05:11 Ordered CRP [C-REACTIVE PROTEIN] [CHEM] Routine Lab 03/03/21 20:47 Ordered Acetaminophen [TylenoL] Med 03/03/21 20:32 Ordered 650 mg PO Q4H PRN Albuterol/Ipratropium [DuoNeb 3.0-0.5 MG/3 ML] Med 03/03/21 23:00 Ordered 3 ml NEB Q8HRRT Azithromycin [Zithromax] Med 03/04/21 09:00 Ordered 250 mg PO DAILY Azithromycin [Zithromax] Med 03/03/21 20:51 Once 500 mg PO ONETIME ONE Codeine/guaiFENesin [Robitussin AC] Med 03/03/21 20:45 Ordered 10 ml PO Q8H Famotidine [Pepcid] Med 03/04/21 09:00 Ordered 20 mg PO DAILY Magnesium Hydroxide [Milk of Magnesia] Med 03/03/21 20:32 Ordered 30 ml PO Q12H PRN Ondansetron [Zofran] Med 03/03/21 20:32 Ordered 4 mg IVPUSH Q6H PRN Sodium Chloride 0.9% @ 125 MLS/HR (1000ml) Med 03/03/21 20:45 Ordered Sodium Chloride 0.9% [Normal Saline] 1,000 ml IV ASDIRECTED Sodium Chloride 0.9% [Saline Flush] Med 03/03/21 16:38 Active 10 ml FLUSH ASDIRECTED PRN polyethylene glycoL 3350 [MiraLAX] Med 03/03/21 20:32 Ordered 17 gm PO DAILY PRN predniSONE Med 03/04/21 08:00 Ordered 40 mg PO WITHBREAKFAST Isolation [COMM] Routine Oth 03/03/21 20:46 Active Peripheral IV Insertion Adult [OM.PC] Stat Oth 03/03/21 16:39 Ordered Sequential Compression Device [OM.PC] Per Unit Routine Oth 03/03/21 20:35 Ordered Resuscitation Status Routine Resus Stat 03/03/21 20:32 Ordered Medication Orders Acetaminophen (Acetaminophen 325 Mg Tab) 650 mg PO Q4H PRN PRN Reason: Pain (Mild 1-3)/fever Albuterol/Ipratropium (Albuterol/Ipratropium 3.0-0.5 Mg/3 Ml Neb Soln) 3 ml NEB Q8HRRT JUDE Azithromycin (Azithromycin 250 Mg Tab) 500 mg PO ONETIME ONE Stop: 03/03/21 20:52 Azithromycin (Azithromycin 250 Mg Tab) 250 mg PO DAILY JUDE Stop: 03/08/21 09:01 Famotidine (Famotidine 20 Mg Tab) 20 mg PO DAILY JUDE Guaifenesin/Codeine Phosphate (Codeine/Guaifenesin 10-100 Mg/5 Ml Syrup 5 Ml Cup) 10 ml PO Q8H JUDE Sodium Chloride (Normal Saline) 1,000 mls @ 125 mls/hr IV ASDIRECTED JUDE Stop: 03/04/21 20:51 Magnesium Hydroxide (Magnesium Hydroxide 400 Mg/5 Ml Susp 30 Ml Cup) 30 ml PO Q12H PRN PRN Reason: Constipation Ondansetron HCl (Ondansetron 4 Mg/2 Ml Sdv) 4 mg IVPUSH Q6H PRN PRN Reason: Nausea/Vomiting Polyethylene Glycol (Polyethylene Glycol 3350 Powder 17 Gm Packet) 17 gm PO DAILY PRN PRN Reason: Constipation Prednisone (Prednisone 20 Mg Tab) 40 mg PO WITHBREAKFAST JUDE Sodium Chloride (Sodium Chloride 0.9% 10 Ml Syringe) 10 ml FLUSH ASDIRECTED PRN PRN Reason: Keep Vein Open Last Admin: 03/03/21 18:31 Dose: 10 ml Documented by: CIERRA Assessment/Plan Comment:: ADMISSION H&P SUBJECTIVE: Several days of persistent dyspnea, now on mild exertion, cough worse than baseline and increased clear sputum productive. Was diagnosed on 02/26; left AMA from ER at that time. Came to clinic today and was directed to ER due to O2 sat in 80s on room air (confirmed in ER). Denies other cardiopulmonary symptoms; a 4-point ROS of 10 systems otherwise for concerning findings. Smokes less than a pack cigs daily. Past medical history, surgical history, allergies, outpatient meds reviewed. OBJECTIVE: Vital viewed. O2 sat low 90s on 2L nasal cannula. Faint wheeze in both mid-lungs. Heart regular rhythm, abdo soft, non-tender. Alert, oriented x3, moves extremities on command, strength 5/5 in all groups. I viewed result of labs and imaging in chart. ASSESSMENT / PLAN: Acute hypoxic resp failure COPD exacerbation Influenza A bronchitis Cig smoking VBG, EKG, CRP. Duoneb TID, prednisone daily, azithromycin daily, codeine PRN cough. Observation status Pneumatic compression device Full code
[2021-03-03] MEDS: Codeine/guaiFENesin 10-100 MG/5 ML Syrup 5 ML Cup PO SCH (21:35)
[2021-03-03] MEDS: Sodium Chloride 0.9% 1,000 ML IV SCH (21:41)
[2021-03-03 22:23] LABS: BASE EXCESS VENOUS 4.5 mmol/l ((-2)-(+3)); BICARBONATE,VENOUS 32 mmol/l (19-25); O2 DELIVERY DEVICE NASAL CANNULA; O2 SATURATION VENOUS 75.5 % (60-80); PCO2 VENOUS 60 mmHg (41-51); PH,VENOUS 7.35 (7.31-7.41); PO2 VENOUS 50 mmHg (35-42)
[2021-03-03 22:26] LABS: O2 FLOW RATE 2
[2021-03-03] MEDS: Albuterol/Ipratropium 3.0-0.5 MG/3 ML Neb Soln NEB SCH (22:56)
[2021-03-04] MEDS: Sodium Chloride 0.9% 1,000 ML IV SCH ×2 (05:42→13:22)
[2021-03-04 06:31] LABS: ANION GAP 10.8 mEq/L (7-13); CHLORIDE,CL 105 mmol/L (98-107); SODIUM,NA 142 mmol/L (136-145)
[2021-03-04] MEDS: Codeine/guaiFENesin 10-100 MG/5 ML Syrup 5 ML Cup PO SCH ×3 (07:05→21:50)
[2021-03-04] MEDS: Albuterol/Ipratropium 3.0-0.5 MG/3 ML Neb Soln NEB SCH ×3 (07:20→21:59)
[2021-03-04] MEDS: predniSONE 20 MG Tab PO SCH (08:35)
[2021-03-04] MEDS: Famotidine 20 MG Tab PO SCH (08:35)
[2021-03-04] MEDS: Budesonide 0.5 MG/2 ML Neb Susp NEB SCH ×2 (15:06→18:10)
--- NOTE | 2021-03-04 20:13 | PCM.PN ---
- General Info Date of Service: 03/04/21 - Patient Data Vitals - Most Recent: Last Vital Signs Temp 98.0 F 03/04/21 16:00 Pulse 106 H 03/04/21 16:00 Resp 18 03/04/21 16:00 BP 137/92 H 03/04/21 16:00 Pulse Ox 94 L 03/04/21 16:00 Weight - Most Recent: 173 lb 1.6 oz I&O - Last 24 Hours: Intake & Output 03/04/21 03/04/21 03/04/21 06:59 14:59 22:59 Intake Total 1250 500 850 Balance 1250 500 850 Lab Results Last 24 Hours: Laboratory Results - last 24 hr 03/03/21 03/03/21 03/04/21 Range/Units 17:04 22:20 05:50 WBC 3.9 L (5.0-10.0) 10^3/uL RBC 5.41 (4.6-6.2) 10^6/uL Hgb 17.2 (14.0-18.0) g/dL Hct 51.4 (40.0-54.0) % MCV 95.0 (80-100) fL MCH 31.8 (27.0-34.0) pg MCHC 33.5 (33.0-35.0) g/dL Plt Count 114 L (150-450) 10^3/uL Neut % (Auto) 90.5 H (42.2-75.2) % Lymph % (Auto) 9.0 L (20.5-50.1) % [place] % (Auto) 0.5 L (2-8) % Eos % (Auto) 0.0 L (1.0-3.0) % Baso % (Auto) 0.0 (0.0-1.0) % VBG pH 7.35 (7.31-7.41) VBG pCO2 60 H (41-51) mmHg VBG pO2 50 H (35-42) mmHg VBG HCO3 32 H (19-25) mmol/l VBG O2 Saturation 75.5 (60-80) % VBG Base Excess 4.5 H ((-2)-(+3)) mmol/l O2 Delivery Device Nasal cannula Oxygen Flow Rate 2 Sodium (136-145) mmol/L Potassium (3.5-5.1) mmol/L Chloride (98-107) mmol/L Carbon Dioxide (21-32) mmol/L Anion Gap (7-13) mEq/L BUN (7-18) mg/dL Creatinine (0.70-1.30) mg/dL Est Cr Clr Drug Dosing mL/min Estimated GFR (MDRD) BUN/Creatinine Ratio (No establ ref range) Glucose (70-99) mg/dL Calcium (8.5-10.1) mg/dL Total Bilirubin (0.2-1.0) mg/dL AST (15-37) U/L ALT (16-63) U/L Alkaline Phosphatase (46-116) U/L C-Reactive Protein 0.6 (0.0-0.9) mg/dL Total Protein (6.4-8.2) g/dL Albumin (3.4-5.0) g/dL Globulin Albumin/Globulin Ratio 03/04/21 Range/Units 05:50 WBC (5.0-10.0) 10^3/uL RBC (4.6-6.2) 10^6/uL Hgb (14.0-18.0) g/dL Hct (40.0-54.0) % MCV (80-100) fL MCH (27.0-34.0) pg MCHC (33.0-35.0) g/dL Plt Count (150-450) 10^3/uL Neut % (Auto) (42.2-75.2) % Lymph % (Auto) (20.5-50.1) % [place] % (Auto) (2-8) % Eos % (Auto) (1.0-3.0) % Baso % (Auto) (0.0-1.0) % VBG pH (7.31-7.41) VBG pCO2 (41-51) mmHg VBG pO2 (35-42) mmHg VBG HCO3 (19-25) mmol/l VBG O2 Saturation (60-80) % VBG Base Excess ((-2)-(+3)) mmol/l O2 Delivery Device Oxygen Flow Rate Sodium 142 (136-145) mmol/L Potassium 5.8 H (3.5-5.1) mmol/L Chloride 105 (98-107) mmol/L Carbon Dioxide 32 (21-32) mmol/L Anion Gap 10.8 (7-13) mEq/L BUN 16 (7-18) mg/dL Creatinine 0.77 (0.70-1.30) mg/dL Est Cr Clr Drug Dosing 107.12 mL/min Estimated GFR (MDRD) > 60 BUN/Creatinine Ratio 20.8 (No establ ref range) Glucose 142 H (70-99) mg/dL Calcium 7.9 L (8.5-10.1) mg/dL Total Bilirubin 0.4 (0.2-1.0) mg/dL AST 43 H (15-37) U/L ALT 54 (16-63) U/L Alkaline Phosphatase 53 (46-116) U/L C-Reactive Protein (0.0-0.9) mg/dL Total Protein 6.8 (6.4-8.2) g/dL Albumin 3.1 L (3.4-5.0) g/dL Globulin 3.7 Albumin/Globulin Ratio 0.84 Med Orders - Current: Current Medications Acetaminophen (Acetaminophen 325 Mg Tab) 650 mg PO Q4H PRN PRN Reason: Pain (Mild 1-3)/fever Albuterol/Ipratropium (Albuterol/Ipratropium 3.0-0.5 Mg/3 Ml Neb Soln) 3 ml NEB Q8HRRT [facility] Last Admin: 03/04/21 15:04 Dose: 3 ml Documented by: Azithromycin (Azithromycin 250 Mg Tab) 250 mg PO Q24H JUDE Budesonide (Budesonide 0.5 Mg/2 Ml Neb Susp) 0.5 mg NEB BIDRT [facility] Last Admin: 03/04/21 18:10 Dose: 0.5 mg Documented by: Famotidine (Famotidine 20 Mg Tab) 20 mg PO DAILY [facility] Last Admin: 03/04/21 08:35 Dose: 20 mg Documented by: Guaifenesin/Codeine Phosphate (Codeine/Guaifenesin 10-100 Mg/5 Ml Syrup 5 Ml Cup) 10 ml PO Q8H [facility] Last Admin: 03/04/21 12:58 Dose: 10 ml Documented by: Sodium Chloride (Normal Saline) 1,000 mls @ 125 mls/hr IV ASDIRECTED [facility] Stop: 03/04/21 20:51 Last Admin: 03/04/21 13:22 Dose: 125 mls/hr Documented by: Magnesium Hydroxide (Magnesium Hydroxide 400 Mg/5 Ml Susp 30 Ml Cup) 30 ml PO Q12H PRN PRN Reason: Constipation Ondansetron HCl (Ondansetron 4 Mg/2 Ml Sdv) 4 mg IVPUSH Q6H PRN PRN Reason: Nausea/Vomiting Polyethylene Glycol (Polyethylene Glycol 3350 Powder 17 Gm Packet) 17 gm PO DAILY PRN PRN Reason: Constipation Prednisone (Prednisone 20 Mg Tab) 40 mg PO WITHBREAKFAST JUDE Last Admin: 03/04/21 08:35 Dose: 40 mg Documented by: Sodium Chloride (Sodium Chloride 0.9% 10 Ml Syringe) 10 ml FLUSH ASDIRECTED PRN PRN Reason: Keep Vein Open Last Admin: 03/03/21 18:31 Dose: 10 ml Documented by: Discontinued Medications Albuterol/Ipratropium (Albuterol/Ipratropium 3.0-0.5 Mg/3 Ml Neb Soln) 3 ml NEB ONETIME ONE Stop: 03/03/21 16:41 Last Admin: 03/03/21 17:05 Dose: 3 ml Documented by: Albuterol/Ipratropium (Albuterol/Ipratropium 3.0-0.5 Mg/3 Ml Neb Soln) 3 ml NEB ONETIME ONE Stop: 03/03/21 18:17 Last Admin: 03/03/21 18:22 Dose: 3 ml Documented by: Azithromycin (Azithromycin 250 Mg Tab) 500 mg PO ONETIME ONE Stop: 03/03/21 21:01 Last Admin: 03/03/21 21:32 Dose: 500 mg Documented by: Methylprednisolone Sodium Succinate (Methylprednisolone Sodium Succinate 125 Mg/2 Ml Sdv) 125 mg IVPUSH ONETIME ONE Stop: 03/03/21 16:41 Last Admin: 03/03/21 18:15 Dose: 125 mg Documented by: Ondansetron HCl (Ondansetron 4 Mg/2 Ml Sdv) 4 mg IV ONETIME ONE Stop: 03/03/21 16:41 Last Admin: 03/03/21 18:22 Dose: Not Given Documented by: Ondansetron HCl (Ondansetron 4 Mg Tab.Dis) Confirm Administered Dose 4 mg .ROUTE .STK-MED ONE Stop: 03/03/21 18:11 Last Admin: 03/03/21 18:10 Dose: 4 mg Documented by: - Patient Data Lab Results Last 24 hrs: Laboratory Results - last 24 hr 03/03/21 03/03/21 03/04/21 Range/Units 17:04 22:20 05:50 WBC 3.9 L (5.0-10.0) 10^3/uL RBC 5.41 (4.6-6.2) 10^6/uL Hgb 17.2 (14.0-18.0) g/dL Hct 51.4 (40.0-54.0) % MCV 95.0 (80-100) fL MCH 31.8 (27.0-34.0) pg MCHC 33.5 (33.0-35.0) g/dL Plt Count 114 L (150-450) 10^3/uL Neut % (Auto) 90.5 H (42.2-75.2) % Lymph % (Auto) 9.0 L (20.5-50.1) % [place] % (Auto) 0.5 L (2-8) % Eos % (Auto) 0.0 L (1.0-3.0) % Baso % (Auto) 0.0 (0.0-1.0) % VBG pH 7.35 (7.31-7.41) VBG pCO2 60 H (41-51) mmHg VBG pO2 50 H (35-42) mmHg VBG HCO3 32 H (19-25) mmol/l VBG O2 Saturation 75.5 (60-80) % VBG Base Excess 4.5 H ((-2)-(+3)) mmol/l O2 Delivery Device Nasal cannula Oxygen Flow Rate 2 Sodium (136-145) mmol/L Potassium (3.5-5.1) mmol/L Chloride (98-107) mmol/L Carbon Dioxide (21-32) mmol/L Anion Gap (7-13) mEq/L BUN (7-18) mg/dL Creatinine (0.70-1.30) mg/dL Est Cr Clr Drug Dosing mL/min Estimated GFR (MDRD) BUN/Creatinine Ratio (No establ ref range) Glucose (70-99) mg/dL Calcium (8.5-10.1) mg/dL Total Bilirubin (0.2-1.0) mg/dL AST (15-37) U/L ALT (16-63) U/L Alkaline Phosphatase (46-116) U/L C-Reactive Protein 0.6 (0.0-0.9) mg/dL Total Protein (6.4-8.2) g/dL Albumin (3.4-5.0) g/dL Globulin Albumin/Globulin Ratio 03/04/21 Range/Units 05:50 WBC (5.0-10.0) 10^3/uL RBC (4.6-6.2) 10^6/uL Hgb (14.0-18.0) g/dL Hct (40.0-54.0) % MCV (80-100) fL MCH (27.0-34.0) pg MCHC (33.0-35.0) g/dL Plt Count (150-450) 10^3/uL Neut % (Auto) (42.2-75.2) % Lymph % (Auto) (20.5-50.1) % Rob[place] % (Auto) (2-8) % Eos % (Auto) (1.0-3.0) % Baso % (Auto) (0.0-1.0) % VBG pH (7.31-7.41) VBG pCO2 (41-51) mmHg VBG pO2 (35-42) mmHg VBG HCO3 (19-25) mmol/l VBG O2 Saturation (60-80) % VBG Base Excess ((-2)-(+3)) mmol/l O2 Delivery Device Oxygen Flow Rate Sodium 142 (136-145) mmol/L Potassium 5.8 H (3.5-5.1) mmol/L Chloride 105 (98-107) mmol/L Carbon Dioxide 32 (21-32) mmol/L Anion Gap 10.8 (7-13) mEq/L BUN 16 (7-18) mg/dL Creatinine 0.77 (0.70-1.30) mg/dL Est Cr Clr Drug Dosing 107.12 mL/min Estimated GFR (MDRD) > 60 BUN/Creatinine Ratio 20.8 (No establ ref range) Glucose 142 H (70-99) mg/dL Calcium 7.9 L (8.5-10.1) mg/dL Total Bilirubin 0.4 (0.2-1.0) mg/dL AST 43 H (15-37) U/L ALT 54 (16-63) U/L Alkaline Phosphatase 53 (46-116) U/L C-Reactive Protein (0.0-0.9) mg/dL Total Protein 6.8 (6.4-8.2) g/dL Albumin 3.1 L (3.4-5.0) g/dL Globulin 3.7 Albumin/Globulin Ratio 0.84 Result Diagrams: 03/04/21 05:50 03/04/21 05:50 Sepsis Event Note - Evaluation Sepsis Screening Result: No Definite Risk - Focused Exam Vital Signs: Vital Signs Temp Pulse Resp BP Pulse Ox 03/04/21 16:00 98.0 F 106 H 18 137/92 H 94 L 03/04/21 12:00 97.5 F 86 18 128/76 92 L - Problem List Review Problem List Initiated/Reviewed/Updated: Yes - My Orders Last 24 Hours: My Active Orders 03/03/21 20:32 Patient Status [ADT] Routine Oxygen Therapy [RC] PRN Up ad Shanae [RC] ASDIRECTED VTE/DVT Education [RC] 08,20 Vital Signs [RC] 20,00,04,08,12,16 Acetaminophen [TylenoL] 650 mg PO Q4H PRN Magnesium Hydroxide [Milk of Magnesia] 30 ml PO Q12H PRN Ondansetron [Zofran] 4 mg IVPUSH Q6H PRN polyethylene glycoL 3350 [MiraLAX] 17 gm PO DAILY PRN Resuscitation Status Routine 03/03/21 20:35 Intake and Output [RC] 06,14,22 Pulse Oximetry [RC] CONTINUOUS Sequential Compression Device [OM.PC] Per Unit Routine 03/03/21 20:36 Antiembolic Devices [RC] 08,20 03/03/21 20:37 RT Aerosol Therapy [RC] ASDIRECTED 03/03/21 20:46 Isolation [COMM] Routine 03/03/21 20:50 Sodium Chloride 0.9% [Normal Saline] 1,000 ml IV ASDIRECTED 03/03/21 21:00 Codeine/guaiFENesin [Robitussin AC] 10 ml PO Q8H 03/03/21 23:00 Albuterol/Ipratropium [DuoNeb 3.0-0.5 MG/3 ML] 3 ml NEB Q8HRRT 03/04/21 08:00 predniSONE 40 mg PO WITHBREAKFAST 03/04/21 09:00 Famotidine [Pepcid] 20 mg PO DAILY 03/04/21 13:37 RT Aerosol Therapy [RC] ASDIRECTED Budesonide [Pulmicort] 0.5 mg NEB BIDRT 03/04/21 21:00 Azithromycin [Zithromax] 250 mg PO Q24H - Plan Plan:: SUBJECTIVE: Improved dyspnea and cough today. ROS otherwise negative for new or major findings. OBJECTIVE: Vital viewed. O2 sat low 90s on 4L nasal cannula. Lungs sounds are normal. Heart regular rhythm, abdo soft, non-tender. Alert, oriented x3, moves extremities on command, strength 5/5 in all groups. I viewed result of labs and imaging in chart. ASSESSMENT / PLAN: Acute hypoxic and hypercapneic resp failure. O2 sat 80% on arrival in ER, pCO2 elevated on VBG. COPD exacerbation. Diagnosis supported by symptoms, initial exam and VBG finding of hypercapnia. Budesonide and duoneb scheduled, prednisone and azithromycin daily. Influenza A bronchitis. As above. Vaccination status will need to be discussed. Thrombocytopenia. Unclear cause. Will need to be monitored. Cig smoking. Cessation counseling will need to be given. Heparin subcu Full code
[2021-03-04] MEDS ORDERED: Azithromycin 250 MG Tab PO SCH (21:00)
[2021-03-04] MEDS: Heparin Sodium 5,000 Units/ML Vial SUBCUT SCH (21:51)
[2021-03-05] MEDS: Codeine/guaiFENesin 10-100 MG/5 ML Syrup 5 ML Cup PO SCH (04:18)
[2021-03-05] MEDS: Albuterol/Ipratropium 3.0-0.5 MG/3 ML Neb Soln NEB SCH (07:22)
[2021-03-05] MEDS: Budesonide 0.5 MG/2 ML Neb Susp NEB SCH (07:23)
[2021-03-05 07:29] LABS: ANION GAP 8.8 mEq/L (7-13); CHLORIDE,CL 106 mmol/L (98-107); SODIUM,NA 144 mmol/L (136-145)
[2021-03-05] MEDS: predniSONE 20 MG Tab PO SCH (08:55)
[2021-03-05] MEDS: Heparin Sodium 5,000 Units/ML Vial SUBCUT SCH (08:56)
[2021-03-05] MEDS: Famotidine 20 MG Tab PO SCH (08:56)
[2021-03-05] MEDS: Sodium Chloride 0.9% 10 ML Syringe FLUSH PRN (09:04)
--- NOTE | 2021-03-05 11:36 | PCM.DCSUM1 ---
Discharge Summary - Hospital Course Free Text/Narrative:: presented with sob h/o smoking, copd chronic sob tested positive for influenza on 02/26/22 Acute hypoxic and hypercapnic resp failure. O2 sat 80% on arrival in ER, pCO2 elevated on VBG. was treated with supplemental oxygen resolved acute COPD exacerbation. Diagnosis supported by symptoms, initial exam will need pulmonary function testing as out pt when exacerbation is resolved start Budesonide and formoterol neb bid, duoneb as needed, prednisone and azithromycin daily. mild Thrombocytopenia. follow periodically as out pt Cig smoking. Cessation counseling, nicotine patch Diagnosis: Stroke: No - Discharge Data Discharge Date: 03/05/21 Discharge Disposition: Home, Self-Care 01 Condition: Stable - Referral to Home Health Primary Care Physician: PCP None - Patient Instructions Diet: Heart Healthy Diet - Discharge Plan *PRESCRIPTION DRUG MONITORING PROGRAM REVIEWED*: Not Applicable *COPY OF PRESCRIPTION DRUG MONITORING REPORT IN PATIENT ROSIE: Not Applicable Prescriptions/Med Rec: Albuterol/Ipratropium [DuoNeb 3.0-0.5 MG/3 ML] 3 ml NEB Q6H PRN #90 neb PRN Reason: for sob, wheezing Nicotine [Nicotine Patch] 21 mg TD DAILY #7 patch Formoterol [Perforomist] 20 mcg INH BID #60 ml predniSONE 20 mg PO WITHBREAKFAST #5 tablet Budesonide [Pulmicort] 0.5 mg NEB BIDRT #60 neb Azithromycin [Zithromax] 250 mg PO Q24H 4 Days #4 tablet Home Medications: Home Meds Albuterol Sulfate [Proair Hfa] 8.5 gm IH Q6H PRN 03/03/21 [History] Albuterol/Ipratropium [DuoNeb 3.0-0.5 MG/3 ML] 3 ml NEB Q6H PRN #90 neb 03/05/21 [Rx] Azithromycin [Zithromax] 250 mg PO Q24H 4 Days #4 tablet 03/05/21 [Rx] Budesonide [Pulmicort] 0.5 mg NEB BIDRT #60 neb 03/05/21 [Rx] Formoterol [Perforomist] 20 mcg INH BID #60 ml 03/05/21 [Rx] Nicotine [Nicotine Patch] 21 mg TD DAILY #7 patch 03/05/21 [Rx] predniSONE 20 mg PO WITHBREAKFAST #5 tablet 03/05/21 [Rx] Oxygen Therapy Mode: Room Air Patient Handouts: Chronic Obstructive Pulmonary Disease Exacerbation, [id number], Steps to Quit Smoking, [id number], Chronic Obstructive Pulmonary Disease, [id number] Forms: ED Department Discharge Referrals: Mabel Munoz NP [Ordering Only Provider] - - Discharge Summary/Plan Comment DC Time >30 min.: No Total # of Minutes for Discharge Time: 25 min - General Info Date of Service: 03/05/21 Subjective Update: sob is still present but improved has on/off cough no fever Functional Status: Reports: Tolerating Diet, Ambulating - Review of Systems General: Reports: Weakness. Denies: Fever Pulmonary: Reports: Shortness of Breath (improved), Cough (non productive) Gastrointestinal: Denies: Abdominal Pain Genitourinary: Denies: Dysuria - Patient Data Vitals - Most Recent: Last Vital Signs Temp 97.8 F 03/05/21 08:00 Pulse 73 03/05/21 08:00 Resp 20 03/05/21 08:00 BP 125/86 03/05/21 08:00 Pulse Ox 95 03/05/21 08:00 Weight - Most Recent: 173 lb 1.6 oz I&O - Last 24 hours: Intake & Output 03/04/21 03/05/21 03/05/21 22:59 06:59 14:59 Intake Total 1270 Balance 1270 Lab Results - Last 24 hrs: Laboratory Results - last 24 hr 03/05/21 03/05/21 Range/Units 06:50 06:50 WBC 7.4 (5.0-10.0) 10^3/uL RBC 5.03 (4.6-6.2) 10^6/uL Hgb 15.8 (14.0-18.0) g/dL Hct 48.2 (40.0-54.0) % MCV 95.8 (80-100) fL MCH 31.4 (27.0-34.0) pg MCHC 32.8 L (33.0-35.0) g/dL Plt Count 105 L (150-450) 10^3/uL Neut % (Auto) 77.1 H (42.2-75.2) % Lymph % (Auto) 12.7 L (20.5-50.1) % [place] % (Auto) 10.1 H (2-8) % Eos % (Auto) 0.1 L (1.0-3.0) % Baso % (Auto) 0.0 (0.0-1.0) % Sodium 144 (136-145) mmol/L Potassium 4.8 (3.5-5.1) mmol/L Chloride 106 (98-107) mmol/L Carbon Dioxide 34 H (21-32) mmol/L Anion Gap 8.8 (7-13) mEq/L BUN 15 (7-18) mg/dL Creatinine 0.70 (0.70-1.30) mg/dL Est Cr Clr Drug Dosing 117.83 mL/min Estimated GFR (MDRD) > 60 BUN/Creatinine Ratio 21.4 (No establ ref range) Glucose 108 H (70-99) mg/dL Calcium 8.0 L (8.5-10.1) mg/dL Total Bilirubin 0.3 (0.2-1.0) mg/dL AST 32 (15-37) U/L ALT 47 (16-63) U/L Alkaline Phosphatase 42 L (46-116) U/L Total Protein 5.9 L (6.4-8.2) g/dL Albumin 2.7 L (3.4-5.0) g/dL Globulin 3.2 Albumin/Globulin Ratio 0.84 Med Orders - Current: Current Medications Acetaminophen (Acetaminophen 325 Mg Tab) 650 mg PO Q4H PRN PRN Reason: Pain (Mild 1-3)/fever Albuterol/Ipratropium (Albuterol/Ipratropium 3.0-0.5 Mg/3 Ml Neb Soln) 3 ml NEB Q8HRRT [facility] Last Admin: 03/05/21 07:22 Dose: 3 ml Documented by: Azithromycin (Azithromycin 250 Mg Tab) 250 mg PO Q24H [facility] Last Admin: 03/04/21 21:50 Dose: 250 mg Documented by: Budesonide (Budesonide 0.5 Mg/2 Ml Neb Susp) 0.5 mg NEB BIDRT [facility] Last Admin: 03/05/21 07:23 Dose: 0.5 mg Documented by: Famotidine (Famotidine 20 Mg Tab) 20 mg PO DAILY [facility] Last Admin: 03/05/21 08:56 Dose: 20 mg Documented by: Guaifenesin/Codeine Phosphate (Codeine/Guaifenesin 10-100 Mg/5 Ml Syrup 5 Ml Cup) 10 ml PO Q8H [facility] Last Admin: 03/05/21 04:18 Dose: Not Given Documented by: Heparin Sodium (Porcine) (Heparin Sodium 5,000 Units/Ml Vial) 5,000 units SUBCUT Q12HR [facility] Last Admin: 03/05/21 08:56 Dose: 5,000 units Documented by: Magnesium Hydroxide (Magnesium Hydroxide 400 Mg/5 Ml Susp 30 Ml Cup) 30 ml PO Q12H PRN PRN Reason: Constipation Ondansetron HCl (Ondansetron 4 Mg/2 Ml Sdv) 4 mg IVPUSH Q6H PRN PRN Reason: Nausea/Vomiting Polyethylene Glycol (Polyethylene Glycol 3350 Powder 17 Gm Packet) 17 gm PO DAILY PRN PRN Reason: Constipation Prednisone (Prednisone 20 Mg Tab) 40 mg PO WITHBREAKFAST [facility] Last Admin: 03/05/21 08:55 Dose: 40 mg Documented by: Sodium Chloride (Sodium Chloride 0.9% 10 Ml Syringe) 10 ml FLUSH ASDIRECTED PRN PRN Reason: Keep Vein Open Last Admin: 03/05/21 09:04 Dose: 10 ml Documented by: Discontinued Medications Albuterol/Ipratropium (Albuterol/Ipratropium 3.0-0.5 Mg/3 Ml Neb Soln) 3 ml NEB ONETIME ONE Stop: 03/03/21 16:41 Last Admin: 03/03/21 17:05 Dose: 3 ml Documented by: Albuterol/Ipratropium (Albuterol/Ipratropium 3.0-0.5 Mg/3 Ml Neb Soln) 3 ml NEB ONETIME ONE Stop: 03/03/21 18:17 Last Admin: 03/03/21 18:22 Dose: 3 ml Documented by: Azithromycin (Azithromycin 250 Mg Tab) 500 mg PO ONETIME ONE Stop: 03/03/21 21:01 Last Admin: 03/03/21 21:32 Dose: 500 mg Documented by: Sodium Chloride (Normal Saline) 1,000 mls @ 125 mls/hr IV ASDIRECTED [facility] Stop: 03/04/21 20:51 Last Admin: 03/04/21 13:22 Dose: 125 mls/hr Documented by: Methylprednisolone Sodium Succinate (Methylprednisolone Sodium Succinate 125 Mg/2 Ml Sdv) 125 mg IVPUSH ONETIME ONE Stop: 03/03/21 16:41 Last Admin: 03/03/21 18:15 Dose: 125 mg Documented by: Ondansetron HCl (Ondansetron 4 Mg/2 Ml Sdv) 4 mg IV ONETIME ONE Stop: 03/03/21 16:41 Last Admin: 03/03/21 18:22 Dose: Not Given Documented by: Ondansetron HCl (Ondansetron 4 Mg Tab.Dis) Confirm Administered Dose 4 mg .ROUTE .STK-MED ONE Stop: 03/03/21 18:11 Last Admin: 03/03/21 18:10 Dose: 4 mg Documented by: - Exam Quality Assessment: Denies: Supplemental Oxygen General: Reports: Alert, Oriented Neck: Reports: Supple Lungs: Reports: Normal Respiratory Effort, Wheezing Cardiovascular: Reports: Regular Rate, Regular Rhythm GI/Abdominal Exam: Normal Bowel Sounds, Soft, Non-Tender Extremities: No Pedal Edema Skin: Reports: Warm, Dry, Intact
== END 2021-03-05 12:45 | disposition home or self-care (01) ==
LOC: DL.ED 15:55 → MERGE 19:15 → INTOOBSV 19:15 → DL.MS 19:15
PROVIDERS: ADMIT Student in an Organized Health Care Education/Training Program; ATTEND Internal Medicine
DX: J44.1 Chronic obstructive pulmonary disease with (acute) exacerbation (principal); J96.01 Acute respiratory failure with hypoxia; J96.02 Acute respiratory failure with hypercapnia; J10.1 Influenza due to other identified influenza virus with other respiratory manifestations; F17.210 Nicotine dependence, cigarettes, uncomplicated; D69.6 Thrombocytopenia, unspecified; Z79.899 Other long term (current) drug therapy; Z20.822 Contact with and (suspected) exposure to COVID-19
CPT/HCPCS: 0241U; 36415; 71045; 80053; 80307; 82803; 83605; 83880; 85025; 85379; 85730; 86140; 93005; 94640; 96372; 96374; 99285-25; A9270-GY; G0378; J1644; J2930; J7030; J7512; J7620-GY

== ENCOUNTER 2022-06-10 11:23 | Emergency (ER) | payer MEDICAID ==
[2022-06-10] MEDS ORDERED: Albuterol/Ipratropium 3.0-0.5 MG/3 ML Neb Soln NEB ONE (11:34)
[2022-06-10] MEDS ORDERED: Sodium Chloride 0.9% 10 ML Syringe FLUSH PRN (11:34)
[2022-06-10] MEDS ORDERED: Magnesium Sulfate/Water 2 GM in Premix Bag 1 BAG IV ONE (11:35)
[2022-06-10] MEDS ORDERED: Dexamethasone 4 MG/ML SDV IVPUSH ONE (11:36)
[2022-06-10] MEDS ORDERED: Magnesium Sulfate/Water 50 ML ONE (11:50)
[2022-06-10 12:23] LABS: ANION GAP 14.5 mEq/L (7-13)
== END 2022-06-10 15:47 | disposition home or self-care (01) ==
LOC: DL.ED 11:23
DX: J44.1 Chronic obstructive pulmonary disease with (acute) exacerbation (principal); R09.02 Hypoxemia; F17.200 Nicotine dependence, unspecified, uncomplicated; Z86.16 Personal history of COVID-19
CPT/HCPCS: 36415; 71045; 71250; 80053; 83605; 83735; 83880; 85025; 86140; 96374; 96375; 99284; 99285-25; J1100; J3475; J3490; J7620-GY